=== PATIENT | female | born 1970 | race Caucasian/White ===

== ENCOUNTER → 2018-01-12 13:08 | Outpatient (CLI) | payer BC, SELFPAY ==
--- NOTE | 2018-01-12 13:10 | US_ITS ---
US transvaginal HISTORY: ITS.REASON: T/V US- Heavy Bleeding ORDERING PHYSICIAN: Berenice Fagan MD PATIENT AGE: 47 years Comparison: None FINDINGS: The uterus measures 8.7 x 5.4 x 5.8 cm with a combined endometrial thickness of 6 mm. There is a small amount of fluid within the superior aspect of the endometrial canal. Nabothian cysts are also noted. Left ovary is 2.5 x 1.4 cm. The right ovary is 3 x 2 cm. No adnexal mass or cul-de-sac fluid evident. IMPRESSION: Small amount of fluid in the endometrium otherwise negative pelvic ultrasound
== END ==
PROVIDERS: Family Provider Internal Medicine; PCP Internal Medicine; Visit Provider Obstetrics & Gynecology
DX: N92.0 Excessive and frequent menstruation with regular cycle (principal)
CPT/HCPCS: 76830

== ENCOUNTER → 2018-03-15 08:15 | Outpatient (CLI) | payer BC, SELFPAY ==
[2018-03-15 08:25] LABS: Hemoglobin 12.7 g/dL (12.2-16.2)
[2018-03-15 09:03] LABS: HCG Qualitative, Serum Negative (Negative)
== END ==
PROVIDERS: Visit Provider Obstetrics & Gynecology
DX: Z01.818 Encounter for other preprocedural examination (principal); N92.0 Excessive and frequent menstruation with regular cycle
CPT/HCPCS: 36415; 84703; 85014; 85018

== ENCOUNTER → 2018-05-23 16:24 | Outpatient (CLI) | payer BC, SELFPAY ==
--- NOTE | 2018-05-23 16:31 | MM_ITS ---
MM Dig screening mamm BI w/CAD ORDERING PHYSICIAN : Zac Sewell MD PATIENT AGE: 48 years GENDER: Female COMPARISON: Previous baseline October 2010 is the only available previous mammogram. INDICATION: ITS.REASON: Routine Screening MammogramNo hormones no new complaints.. Family history. Maternal great aunt and paternal great aunt with breast cancer TECHNIQUE: Standard CC and MLO images were obtained. R2 CAD reviewed. FINDINGS: Difficult breasts to evaluate due to the prominent asymmetric, pattern with heterogeneous areas of increased density bilaterally. Prominent asymmetry of the breast most evident towards left breast . Warrants additional spot views of the left breast RIGHT BREAST:. The density at the posterior margin of the medial right breast is most likely stable but is noted. Labeled A. I would recommend attempting a spot view it is very deep portion of the breast both in the CC and MLO projection.. A full 90 degree view of the right breast also may be of benefit. Ultrasound thereafter recommended. The above is likely likely stable feature but is but spot views will help to better visualizes region to confirm stability. Ultrasound survey this and other areas LEFT BREAST: Area X: More pronounced asymmetric region density throughout breast tissue is at inferior left breast vs previous available studies. This could merely be related to dense breast tissue and overlapping appearance but it is notably more pronounced and warrants further evaluation. Warrants additional views & ultrasound to further evaluate this area. Recommend MLOdegrees spot views area X and Y; along with cc spot views at both view both area X medial breast and area Y, along with the full breast 90 degree lateral view left breast.. Thereafter recommended Ultrasound left breast... Area labeled Y towards upper-outer quadrant was partially imaged last year but is seen to better advantage on today's axillary cc view and more optimal position MLO view today. IMPRESSION: ...... Left breast Additional spot views left breast along with left breast ultrasound Markedly asymmetric areas of breast tissue inferior breast labeled X as well as area at the upper outer quadrant left breast labeled Y. These may merely reflect areas of dense glandular tissue but are significantly more pronounced than on previous studies-but this in part due to difference in position and technique. Right breast. Spot views in the medial right breast area labeled A..... Subsequent ultrasound survey right breast also suggested thereafter BI-RADS Category: 0 Need Additional Imaging Evaluation RECOMMENDED FOLLOW-UP: IMM - IMMEDIATE FOLLOW-UP RECOMMENDED Spot views left breast of area X and Y, ,; followed by left breast ultrasound [Spot views deep right breast.. Subsequent ultrasound right breast is well (A letter has been sent to the patient regarding results of the study.) .
--- NOTE | 2018-05-23 16:32 | XR_ITS ---
XR foot wt bearing RT 3V HISTORY: ITS.REASON: Toe Pain ORDERING PHYSICIAN: Zac Sewell MD PATIENT AGE: 48 years COMPARISON: None FINDINGS: There is mild osteoarthritis of the first metatarsophalangeal joint with mild bony hypertrophy. A small calcification is present along the lateral aspect of the MTP joint nonspecific. No fracture or dislocation. No lytic or blastic change. IMPRESSION: Mild osteoarthritis of the first metatarsophalangeal joint
--- NOTE | 2018-05-23 16:32 | XR_ITS ---
XR foot wt bearing LT 3V HISTORY: ITS.REASON: Toe Pain ORDERING PHYSICIAN: Zac Sewell MD PATIENT AGE: 48 years COMPARISON: 01/29/2014 FINDINGS: There is moderate osteoarthritic change of the first metatarsophalangeal joint with bony hypertrophic change. No fracture or dislocation. No lytic or blastic change and no significant change from 01/29/2014. IMPRESSION: Osteoarthritis of the first metatarsophalangeal joint
== END ==
PROVIDERS: PCP Internal Medicine; Visit Provider Nurse Practitioner Obstetrics & Gynecology
DX: Z12.31 Encounter for screening mammogram for malignant neoplasm of breast (principal); M79.671 Pain in right foot; M79.672 Pain in left foot
CPT/HCPCS: 73630; 77067

== ENCOUNTER → 2018-06-20 14:27 | Outpatient (CLI) | payer BC, SELFPAY ==
--- NOTE | 2018-06-20 14:29 | MM_ITS ---
BILATERAL DIAGNOSTIC MAMMOGRAM: With bilateral spot views. CAD MAMMOGRAPHY. History: Today's studies are compared to May 23, 2018 and November 19, 2010. TECHNIQUE. CC and MLO spot views of both right and left breast but for 90 degrees view left breast. FINDINGS Breasts demonstrate prominent asymmetry with asymmetric Areas described on recent May 14, 2019 mammogram now further evaluated. RIGHT BREAST.. These asymmetric areas of fibroglandular tissue appear stable since 2010 at specifically noting similar area of density at the deep axillary right breast. No unique or discrete findings, of significant concern. . 2 very tiny benign calcifications deep medial right breast as well as deep superior breast are noted-not of concern LEFT BREAST Again asymmetric areas breast tissue are observed deep axillary left breast along the inferior left breast.. Most likely these features are stable since 2010. The region is slightly denser on today's MLO and 90 degrees views on these projections,, as appears the density fibroglandular tissue seems to dissipate on the cc views... Follow-up left mammogram in 6 months recommended. Self breast examination recommended at the inferior left breast. There is progressive findings here clinically then interval ultrasound may be warranted. Also the asymmetric island glandular tissue upper-outer quadrant left breast appears reasonably stable since 2010 with no suspicious no focal lesion here. . There are 3 small fairly dense most likely benign-appearing calcifications are noted at the superior left breast which would also benefit from 6 month follow-up IMPRESSION... Marked asymmetric, areas of moderately dense breast tissue at again observed. Most likely baseline for this patient and seem to dissipate from one view to another LEFT BREAST. Recommend 6 month follow-up to confirm stable baseline character of these asymmetric fibroglandular densities, as well as 3 small benign-appearing calcifications here at upper-outer quadrant RIGHT BREAST no significant change. Follow-up in one year adequate on right BI-RADS Category: 3 Probably Benign Finding Short Term Follow-up RECOMMENDED FOLLOW-UP: 6M - 6 MONTH FOLLOW-UP Left breast follow-up 6 months (A letter has been sent to the patient regarding the results of the study.)
== END ==
PROVIDERS: PCP Internal Medicine; Visit Provider Nurse Practitioner Obstetrics & Gynecology
DX: R92.8 Other abnormal and inconclusive findings on diagnostic imaging of breast (principal)
CPT/HCPCS: 77066

== ENCOUNTER → 2018-07-12 09:22 | Outpatient (CLI) | payer BC, SELFPAY ==
[2018-07-12 09:52] LABS: Basophils % 0.5 % (0.1-2.0); Eosinophils # 0.2 K/mm3 (0.0-0.4); Eosinophils % 3.6 % (0.1-12.0); Hematocrit 42.2 % (37.0-47.0); Hemoglobin 13.5 g/dL (12.2-16.2); Lymphocytes # 2.1 K/mm3 (0.7-4.5); Mean Corpuscular HGB Conc 32.1 g/dL (31.8-35.4); Mean Corpuscular Hemoglobin 29.5 pg (27.0-31.2); Mean Corpuscular Volume 91.9 fl (81-99); Mean Platelet Volume 6.9 fl (7.4-10.4); Monocytes # 0.2 K/mm3 (0.1-1.0); Monocytes % 3.4 % (1.7-9.3); Neutrophils # 4.1 K/mm3 (1.8-7.8); Neutrophils % 61.5 % (37.0-80.0); Platelet Count 263 K/mm3 (142-424); Red Blood Count 4.59 M/mm3 (4.20-5.40); Red Cell Distribution Width 13.7 % (11.5-17.5); White Blood Count 6.7 K/mm3 (4.8-10.8)
[2018-07-12 09:54] LABS: Urine Pregnancy, HCG Qual. Negative (Negative)
[2018-07-12 10:17] LABS: Blood Urea Nitrogen 20 mg/dL (7-18); Chloride 104 mmol/L (98-107); Glucose 99 mg/dL (74-106); Potassium 4.4 mmoL/L (3.5-5.1); Sodium 142 mmol/L (136-145)
[2018-07-12 10:31] LABS: Anion Gap 15.4 mEq/L (5-15); Carbon Dioxide 27 mmol/L (21.0-32.0); Creatinine,Serum 0.88 mg/dL (0.55-1.02); Estimated Glomerular Filt Rate 68 ml/min (>60); GFR (African American) 83 ML/MIN (>60)
[2018-07-13 14:18] LABS: Vitamin D 25 Hydroxy 29.8 ng/mL (30.0-100.0)
== END ==
PROVIDERS: PCP Internal Medicine; Visit Provider Podiatrist
DX: Z01.818 Encounter for other preprocedural examination (principal); M20.5X2 Other deformities of toe(s) (acquired), left foot; M79.675 Pain in left toe(s)
CPT/HCPCS: 36415; 80048; 81025; 82652; 85025; 93005

== ENCOUNTER → 2018-08-24 10:35 | Outpatient (CLI) | payer BC, SELFPAY ==
--- NOTE | 2018-08-24 10:38 | XR_ITS ---
XR foot wt bearing LT 3V HISTORY: ITS.REASON: post-op ORDERING PHYSICIAN: Kimberly Higgins DPM PATIENT AGE: 48 years COMPARISON: 08/10/2018 FINDINGS: Posterior splint remains in place. There is good alignment. Faint lucency once again noted at the head of the first metatarsal with mild osteoarthritic changes of the first MTP joint. IMPRESSION: No change in the posterior splint and faint lucency at the head of the first metatarsal
== END ==
PROVIDERS: PCP Internal Medicine; Visit Provider Podiatrist
DX: Z98.890 Other specified postprocedural states (principal)
CPT/HCPCS: 73630

== ENCOUNTER → 2018-09-06 13:21 | Outpatient (CLI) | payer BC, SELFPAY | PROVIDERS: Visit Provider Podiatrist | DX: Z98.890 Other specified postprocedural states (principal) | CPT/HCPCS: 87070; 87077; 87186; 87205 ==

== ENCOUNTER → 2018-09-13 14:53 | Outpatient (CLI) | payer BC, SELFPAY ==
--- NOTE | 2018-09-13 14:55 | NVE_ITS ---
Venous Exam Indications: 729.5 Pain in limb. Recent tendon surgery left lower extremity 4 weeks post op IMPRESSIONS No evidence of deep or superficial vein thrombosis involving the left lower extremity Left lower extremity venous duplex evaluation. Doppler flow study including spectral analysis, color and chang scale imaging. Location: Vascular laboratory. Patient status: Outpatient. CRITICAL FINDINGS - Reported to: Gisela - Read back and verified. - 09/13/18 - 1515 - None Tables: Venous flow and imaging: + +-------+ + Location Overall Flow properties + +-------+ + Left common femoral Patent Normal phasicity; spontaneous; normal augmentation; compressible + +-------+ + Left saphenofemoral junction Patent Compressible + +-------+ + Left profunda femoral Patent Compressible + +-------+ + Left femoral Patent Normal phasicity; spontaneous; normal augmentation; compressible + +-------+ + Left greater saphenous Patent Normal phasicity; spontaneous; normal augmentation; compressible + +-------+ + Left popliteal Patent Normal phasicity; spontaneous; normal augmentation; compressible + +-------+ + Left posterior tibial Patent Compressible + +-------+ + Left peroneal Patent Compressible + +-------+ + Left gastrocnemius Patent Compressible + +-------+ + Left soleal Patent Compressible + +-------+ + (Report amended ) Electronically signed by: Matthew Moeller [id number]
== END ==
PROVIDERS: PCP Internal Medicine; Visit Provider Podiatrist
DX: M79.669 Pain in unspecified lower leg (principal); M79.89 Other specified soft tissue disorders
CPT/HCPCS: 93971

== ENCOUNTER → 2018-09-23 08:05 | Outpatient (CLI) | payer BC, SELFPAY ==
--- NOTE | 2018-09-23 08:08 | XR_ITS ---
XR foot wt bearing LT 3V HISTORY: Follow-up surgery ITS.REASON: post-op ORDERING PHYSICIAN: Kimberly Higgins DPM PATIENT AGE: 48 years COMPARISON: 08/24/2018 FINDINGS: The posterior splint has been removed. There is good alignment. Osteoarthritic changes are present at the first metatarsophalangeal joint. No bony erosive process is evident. Faint lucency once again noted at the head of the first metatarsal. IMPRESSION: Interval splint removal otherwise no change.
== END ==
PROVIDERS: PCP Internal Medicine; Visit Provider Podiatrist
DX: Z98.890 Other specified postprocedural states (principal)
CPT/HCPCS: 73630

== ENCOUNTER 2018-10-03 08:30 | Outpatient (RCR) | payer BC, SELFPAY ==
--- NOTE | 2018-09-13 14:35 | HMH.PTOPEV ---
PT Outpatient Evaluation Rehab PT Outpatient Evaluation Start: 09/13/18 14:04 Freq: Status: Active Protocol: Document 09/13/18 14:04 SHERITA (Rec: 09/13/18 14:34 SHERITA [id number]) Electronically Signed By Pranav Donnelly, PT 09/13/18 14:04 Outpatient Therapy Subjective History Subjective History Pt presents s/p L ankle/foot sx. (1st MTP cartialge replacement, 1st MTP bone spur excision, post. tib. tendon lengthening) on 08/10/18. Pt reports improved foot and ankle function and pain overall compared to previous 3 -4 yrs. Pt reports however, constant achilles/soleus area pain, 'it feels like there's a knot in there', which limits gait d/t pain (same area as abscessed suture). Pt also reports some mild hypersensitivity on top of L foot since sx. Chief Complaint Pain Stiff Paresthesia Weakness Symptom Type Ache Throb Sharp Dull Burning Numbness Tingling Symptoms Relieved By Rest/Positioning Symptoms Aggravated By Standing Physical Activity Walking Prior Functional Limitations Housework Standing Walking Stairs Current Functional Limitations Housework Standing Walking Stairs Symptom Description Constant but Variable Level of pain today (0-10) 5 Pain scale - at its best (0-10) 1 Pain scale - at its worst (0-10) 7 Ankle/Foot Eval Gait Observation General Gait Pattern Observation Antalgic Gait Assistive Device Ambulation Assistive Device None Palpation Tenderness left Ankle/Foot Palpation Findings Tenderness Trigger Point Ankle/Foot Palpation Overall Comment achilles MT junction and medial gastroc 3/4, 1st MTP 2/ 4 ROM Ankle/Foot Dorsiflexion w/Knee Extended 0-10
== END 2018-10-03 08:35 | disposition home or self-care (01) ==
LOC: PT 08:30
PROVIDERS: Visit Provider Podiatrist
DX: Z98.890 Other specified postprocedural states (principal)
CPT/HCPCS: 97010; 97014; 97035; 97110; 97140; 97163; G0283

== ENCOUNTER → 2018-11-03 15:17 | Outpatient (CLI) | payer BC, SELFPAY ==
--- NOTE | 2018-11-03 15:18 | MM_ITS ---
MM Dig mamm BI DX w/CAD, US breast RT complete, US breast LT complete INDICATION: Palpable right breast nodule, six-month follow-up left breast ORDERING PHYSICIAN: Zac Sewell MD PATIENT AGE: 48 years COMPARISON: 06/20/2018, 05/23/2018 TECHNIQUE: Bilateral mammogram performed with bilateral spot compression views and bilateral breast ultrasound FINDINGS: Right breast: Palpable abnormality is reported at 6:00. There is average fibroglandular tissue. Benign-appearing nodular opacities present in the outer aspect of the right breast not significant change. There is some asymmetric fibroglandular tissue in the superior aspect of the right breast and in the inferior aspect of the right breast. These areas have her do appear to compress out as fibroglandular tissue. There is a benign-appearing nodular density in the medial aspect of the right breast 4 mm. No malignant appearing mass or malignant appearing microcalcification is evident. Asymmetric density once again noted involving the upper inner deep aspect of the right breast not significant change. This was present on 11/19/2010 as well and unchanged. Right breast ultrasound: There is a 5 x 4 mm cyst at 7:00. No other abnormalities are apparent. No malignant appearing mass or malignant appearing microcalcification Left breast: Asymmetric tissue once again noted in the axillary region on the left. No malignant appearing mass or malignant appearing microcalcification is evident. Is asymmetric density was present dating back to 11/19/2010 and is felt to be related to fibroglandular tissue. Benign-appearing calcifications are present in the upper outer left breast. Benign-appearing nodules are noted on the left as well with asymmetric density in the inferolateral aspect of left breast also similar to previous exams. Left breast ultrasound: No sonographic abnormality. Small nodes are present in the axilla. IMPRESSION: No convincing evidence of malignancy. Scattered areas of asymmetry as previously described not significantly changed. Small cyst is present in the 7:00 region of the right breast at 5 x 4 mm. A negative mammogram and negative ultrasound does not exclude the possibility of malignancy. No anomalies are evident in the area of palpable concern. If there is indeed a palpable nodules in addition be managed on a clinical basis. Recommend screening mammogram in 6 months BI-RADS Category: 2 Benign Finding(s) RECOMMENDED FOLLOW-UP: 6M - 6 MONTH FOLLOW-UP Any palpable nodule should be managed on clinical basis despite negative mammogram and negative ultrasound. (A letter has been sent to the patient regarding results of the study.)
== END ==
PROVIDERS: PCP Internal Medicine; Visit Provider Nurse Practitioner Obstetrics & Gynecology
DX: R92.8 Other abnormal and inconclusive findings on diagnostic imaging of breast (principal)
CPT/HCPCS: 76641; 77066

== ENCOUNTER → 2018-11-24 08:41 | Outpatient (CLI) | payer BC, SELFPAY ==
--- NOTE | 2018-11-24 08:44 | XR_ITS ---
XR foot wt bearing LT 3V HISTORY: Pain redness and swelling ITS.REASON: postop views ORDERING PHYSICIAN: Kimberly Higgins DPM PATIENT AGE: 48 years COMPARISON: 09/23/2018 FINDINGS: No fracture or dislocation. Osteoarthritic change once again noted at the first metatarsophalangeal joint with a subcortical lucency involving the central distal aspect of the first metatarsal. Mild soft tissue swelling medially at the first MTP joint. Otherwise negative. IMPRESSION: Overall no change in the osteoarthritis of the first MTP with a subcortical lucency at the distal aspect of the first metatarsal now with some soft tissue swelling at this area
== END ==
PROVIDERS: PCP Internal Medicine; Visit Provider Podiatrist
DX: Z98.890 Other specified postprocedural states (principal)
CPT/HCPCS: 73630

== ENCOUNTER → 2019-02-01 13:59 | Outpatient (CLI) | payer BC, SELFPAY ==
--- NOTE | 2019-02-01 14:04 | XR_ITS ---
XR foot wt bearing LT 3V HISTORY: ITS.REASON: post op pain ORDERING PHYSICIAN: Kimberly Higgins DPM PATIENT AGE: 48 years COMPARISON: 11/24/2018 FINDINGS: Postsurgical defect noted at the distal aspect of the first metatarsal with osteoarthritic change of the first MTP joint overall not significantly changed. Mild soft tissue swelling is present at the MTP joint posteriorly. Minimal fragmentation noted along the dorsal distal aspect of the first metatarsal. IMPRESSION: Osteoarthritis with postsurgical change at the first MTP joint. There is some minimal dorsal fragmentation at the distal aspect of the first metatarsal which is of questionable clinical significance. Continued follow-up suggested
== END ==
PROVIDERS: PCP Internal Medicine; Visit Provider Podiatrist
DX: Z98.890 Other specified postprocedural states (principal); M79.672 Pain in left foot
CPT/HCPCS: 73630

== ENCOUNTER → 2019-06-05 10:47 | Outpatient (CLI) | payer BC, SELFPAY ==
[2019-06-05 11:06] LABS: Basophils % 0.5 % (0.1-2.0); Eosinophils # 0.2 K/mm3 (0.0-0.4); Hematocrit 39.9 % (37.0-47.0); Hemoglobin 12.4 g/dL (12.2-16.2); Lymphocytes # 1.7 K/mm3 (0.7-4.5); Lymphocytes % 31.6 % (10-50); Mean Corpuscular HGB Conc 31.2 g/dL (31.8-35.4); Mean Corpuscular Hemoglobin 30.6 pg (27.0-31.2); Mean Platelet Volume 8.1 fl (7.4-10.4); Monocytes # 0.2 K/mm3 (0.1-1.0); Monocytes % 3.3 % (1.7-9.3); Neutrophils # 3.4 K/mm3 (1.8-7.8); Neutrophils % 61.5 % (37.0-80.0); Platelet Count 254 K/mm3 (142-424); Red Blood Count 4.07 M/mm3 (4.20-5.40); White Blood Count 5.5 K/mm3 (4.8-10.8)
[2019-06-05 12:53] LABS: Alanine Aminotransferase 36 U/L (12-78); Albumin Level 3.5 gm/dL (3.4-5.0); Albumin/Globulin Ratio 1.1 (1.1-1.8); Alkaline Phosphatase 76 U/L (46-116); Aspartate Amino Transferase 23 U/L (15-37); Bilirubin,Total 0.3 mg/dL (0.2-1.0); Blood Urea Nitrogen 16 mg/dL (7-18); Calcium 8.3 mg/dL (8.5-10.1); Carbon Dioxide 28 mmol/L (21.0-32.0); Chloride 100 mmol/L (98-107); Chol/HDL Ratio 3.9 (1-3.5); Cholesterol 195 mg/dL (140-200); Creatinine,Serum 0.69 mg/dL (0.55-1.02); Estimated Glomerular Filt Rate 90 ml/min (>60); Free Thyroxine Index 2.4 ug/dL (5.93-13.13); GFR (African American) 109 ML/MIN (>60); Globulin 3.3 gm/dl (1.3-3.2); Glucose 91 mg/dL (74-106); HDL Cholesterol 50 mg/dL (29-89); LDL Cholesterol 121 mg/dL (0-130); Sodium 128 mmol/L (136-145); T4 (Thyroxine) 7.4 ug/dl (4.7-13.3); Thyroid Stimulating Hormone 2.11 uIU/ml (0.358-3.740); Total Protein,Serum 6.8 gm/dL (6.4-8.2); Triglycerides 120 mg/dL (30-200); Triiodothryronine (T3) Uptake 33 % (31-39); VLDL Cholesterol 24 mg/dL (0-40)
[2019-06-06 13:17] LABS: Estradiol 158.8 pg/mL (.); FSH 3.9 mIU/mL (.); LH 5.6 mIU/mL (.)
== END ==
PROVIDERS: Visit Provider Nurse Practitioner Obstetrics & Gynecology
DX: Z00.00 Encounter for general adult medical examination without abnormal findings (principal)
CPT/HCPCS: 36415; 80053; 80061; 82670; 83001; 83002; 84436; 84443; 84479; 85025

== ENCOUNTER → 2021-03-10 10:05 | Outpatient (CLI) | payer BC, SELFPAY ==
--- NOTE | 2021-03-10 10:13 | XR_ITS ---
PROCEDURE: XR ELBOW LT MIN 3V CLINICAL INDICATION: LT ELBOW PAIN COMPARISON: No exams were available for comparison FINDINGS: No fracture or dislocation. No lytic or blastic change. There is normal mineralization. There is mild spurring involving the medial aspect the coracoid process. No displaced fat pad. IMPRESSION: Mild osteoarthritic change. Dictated by: Nikko Marie MD 03/10/2021 10:27 Nikko Marie MD in [place] 03/10/2021 10:27
== END ==
PROVIDERS: PCP Internal Medicine; Visit Provider Internal Medicine
DX: M25.522 Pain in left elbow (principal)
CPT/HCPCS: 73080

== ENCOUNTER → 2021-05-19 08:04 | Outpatient (CLI) | payer BC, SELFPAY | PROVIDERS: PCP Internal Medicine; Visit Provider Nurse Practitioner | DX: Z20.822 Contact with and (suspected) exposure to COVID-19 (principal) | CPT/HCPCS: C9803; U0003; U0005 ==

== ENCOUNTER → 2021-07-14 10:11 | Outpatient (CLI) | payer BC, SELFPAY | PROVIDERS: PCP Internal Medicine; Visit Provider Nurse Practitioner | DX: Z20.822 Contact with and (suspected) exposure to COVID-19 (principal) | CPT/HCPCS: C9803; U0003; U0005 ==

== ENCOUNTER → 2021-07-23 13:01 | Outpatient (CLI) | payer BC, SELFPAY | PROVIDERS: Visit Provider Nurse Practitioner | DX: U07.1 COVID-19 (principal) | CPT/HCPCS: C9803; U0003; U0005 ==

== ENCOUNTER 2021-07-24 12:12 | Emergency (ER) | payer BC, SELFPAY ==
[2021-07-24 12:27] VITALS: BP 0/0; PULSE 0; RESP 0; TEMP -17.7; TEMP 0
== END 2021-07-24 12:28 | disposition left against medical advice (07) ==
PROVIDERS: Emergency Provider Nurse Practitioner; PCP Internal Medicine
DX: Z53.21 Procedure and treatment not carried out due to patient leaving prior to being seen by health care provider (principal)

== ENCOUNTER 2021-07-26 13:10 | Emergency (ER) | payer BC, SELFPAY ==
[2021-07-26 13:11] VITALS: BP 139/93; PULSE 86; RESP 16; TEMP 37.1; O2SAT 99; BMI 25.9
--- NOTE | 2021-07-26 14:17 | XR_ITS ---
PROCEDURE INFORMATION: Exam: XR Chest Exam date and time: 07/26/2021 2:17 PM Age: 51 years old Clinical indication: Condition or disease; Other: Covid; Cough; Additional info: Cough, covid TECHNIQUE: Imaging protocol: XR of the chest. Views: 1 view. COMPARISON: No relevant prior studies available. FINDINGS: Lungs: Hyperinflation and interstitial prominence, without acute infiltrate. Pleural spaces: No pleural effusion. Heart/Mediastinum: No cardiomegaly. Bones/joints: Degenerative change. IMPRESSION: Hyperinflation and interstitial prominence, without acute infiltrate.
--- NOTE | 2021-07-26 14:26 | HMH.EDGENADL ---
ED Disposition Clinical Impression: COVID-19 virus infection Disposition: Home, Self-Care Condition on Discharge: Fair Instructions: DI for COVID-19 (Suspected or Confirmed ), DI for Nausea -- Adult Additional Instructions: You have been evaluated for nausea and vomiting. Likely due to COVID-19 infection. Please continue to monitor your symptoms at home. Tylenol for 6 hours. Ibuprofen for breakthrough fever. Phenergan for nausea. Follow-up with your primary care doctor. Return to the emergency department for any new or worsening symptoms, difficulty breathing or other concerns. Prescriptions: Promethazine HCl [Phenergan 12.5mg tablet] 12.5 mg PO Q6H PRN #6 tab PRN Reason: Nausea Transmission Status: Pending to [id number] Referrals: Ramiro Calix [Primary Care Provider] - Time of Disposition: 16:08 - Critical Care Critical Care Time: No Attestation: On 07/26/21, the high probability of a clinically significant, sudden or life threatening deterioration of the following system(s) required my full and direct attention, intervention and personal management. The time I documented below is in addition to time spent performing reported procedures but includes the following listed in this critical care notation. Medical Decision Making - Medical Records Medical records reviewed: Yes: I reviewed the patient's medical records. - [place] Inquiry Pt receiving controlled substance: No Vital Signs: 07/26/21 13:11 07/26/21 16:04 07/26/21 16:06 Temperature 98.7 F 98.4 F Temperature Source Oral Oral Pulse Rate 70 87 Pulse Rate [Right] 86 Respiratory Rate 16 16 Blood Pressure 136/73 136/73 Blood Pressure [Right Arm] 139/93 H Blood Pressure Mean [Right Arm] 108 Blood Pressure Source Automatic Cuff Blood Pressure Source [Right Arm] Automatic Cuff Blood Pressure Position Sitting Blood Pressure Position [Right Arm] Sitting 02 Sat by Pulse Oximetry 99 99 99 Oxygen Delivery Method Room Air Room Air Room Air - Lab Data Lab Results 07/26/21 14:28: WBC 4.9, RBC 4.77, Hgb 14.9, Hct 45.5, MCV 95.3, MCH 31.2, MCHC 32.7, RDW 13.1, Plt Count 217, MPV 8.0, Neut % (Auto) 64.5, Lymph % (Auto) 29.3, [place] % (Auto) 4.5, Eos % (Auto) 0.2, Baso % (Auto) 1.5, Neut # (Auto) 3.1, Lymph # (Auto) 1.4, [place] # (Auto) 0.2, Eos # (Auto) 0.0, Baso # (Auto) 0.1 07/26/21 14:28: Sodium 137, Potassium 3.5, Chloride 102, Carbon Dioxide 25, Anion Gap 13.5, BUN 18 H, Creatinine 0.90, Estimated Creat Clear 90, Estimated GFR 66, Est GFR ( Amer) 80, Glucose 102 H, Calcium 9.4, Total Bilirubin 0.6, AST 38 H, ALT 29, Alkaline Phosphatase 58, Total Protein 7.9, Albumin 4.5, Globulin 3.4 H, Albumin/Globulin Ratio 1.3 Result diagrams: 07/26/21 14:28 07/26/21 14:28 Orders (Tests/Meds): ED MEDICATIONS Discontinued Medications Generic Name Dose Route Start Last Admin Trade Name Medardoq PRN Reason Stop Dose Admin Promethazine HCl 12.5 mg 07/26/21 14:18 07/26/21 14:31 Promethazine Hcl 25mg/Ml 1ml Vial IV 07/26/21 14:19 12.5 mg ONCE ONE Administration Sodium Chloride 500 ml 07/26/21 14:18 07/26/21 14:31 Sodium Chloride 0.9% 500ml Bag IV 07/26/21 14:19 500 ml ONCE ONE Administration Sodium Chloride 25 ml 07/26/21 14:18 Sodium Chloride 0.9% 25ml Bag IV 07/26/21 14:19 ONCE ONE ORDERS Category Date Time Status Urinalysis and Microscopic Stat Lab 07/26/21 16:01 Ordered - Radiology Data #1 Image(s): Chest Image Reviewed: Yes I reviewed the patient's radiology results, Yes I have reviewed radiologist's interpretation Preliminary Findings: Normal/NAD IMPRESSION: Hyperinflation and interstitial prominence, without acute infiltrate. Medical Decision Narrative: In summary this is a 51-year-old female on day 10 of Covid virus presenting to the emergency department with nausea, vomiting, body aches and chills. Patient clinically stable on arrival. Vital signs withi
[2021-07-26 14:53] LABS: Basophils # 0.1 K/mm3 (0-0.2); Basophils % 1.5 % (0.1-2.0); Eosinophils % 0.2 % (0.1-12.0); Hematocrit 45.5 % (37.0-47.0); Hemoglobin 14.9 g/dL (12.2-16.2); Lymphocytes # 1.4 K/mm3 (0.7-4.5); Lymphocytes % 29.3 % (10-50); Mean Corpuscular HGB Conc 32.7 g/dL (31.8-35.4); Mean Corpuscular Hemoglobin 31.2 pg (27.0-31.2); Mean Corpuscular Volume 95.3 fl (81-99); Monocytes # 0.2 K/mm3 (0.1-1.0); Monocytes % 4.5 % (1.7-9.3); Neutrophils # 3.1 K/mm3 (1.8-7.8); Neutrophils % 64.5 % (37.0-80.0); Platelet Count 217 K/mm3 (142-424); Red Blood Count 4.77 M/mm3 (4.20-5.40); Red Cell Distribution Width 13.1 % (11.5-17.5); White Blood Count 4.9 K/mm3 (4.8-10.8)
[2021-07-26 14:56] LABS: Alanine Aminotransferase 29 U/L (12-78); Albumin Level 4.5 g/dl (3.5-5.0); Albumin/Globulin Ratio 1.3 (1.1-1.8); Alkaline Phosphatase 58 U/L (38-126); Anion Gap 13.5 mEq/L (5-15); Aspartate Amino Transferase 38 U/L (14-36); Bilirubin,Total 0.6 mg/dl (0.2-1.3); Blood Urea Nitrogen 18 mg/dl (7-17); Calcium 9.4 mg/dl (8.4-10.2); Carbon Dioxide 25 mmol/L (22.0-30.0); Chloride 102 mmol/L (98-107); Creatinine Clearance Estimated 90 mL/min (50-200); Estimated Glomerular Filt Rate 66 ml/min (>60); GFR (African American) 80 ML/MIN (>60); Globulin 3.4 g/dL (1.3-3.2); Glucose 102 mg/dl (74-100); Potassium 3.5 mmoL/L (3.5-5.1); Sodium 137 mmol/L (136-145); Total Protein,Serum 7.9 g/dl (6.3-8.2)
--- NOTE | 2021-07-26 16:00 | PC.NURSE ---
pt up to restroom
[2021-07-26 16:04] VITALS: BP 136/73; PULSE 70; RESP 16; TEMP 36.9; O2SAT 99
[2021-07-26 16:06] VITALS: BP 136/73; PULSE 87; O2SAT 99
[2021-07-26 16:09] LABS: Microscopic, Urine URINE MICROSCOPIC (MICROSCOPIC)
[2021-07-26 16:14] LABS: Appearance,Urine SL CLOUDY (Clear); Bilirubin,Urine Negative (Negative); Blood, Urine Negative (Negative); Color,Urine YELLOW (Yellow); Glucose,Urine (UA) Negative (Negative); Ketones,Urine Negative (Negative); Leukocyte Esterase,Urine TRACE (Negative); Nitrate,Urine POSITIVE (Negative); PH,Urine 5.5 (5.0-8.5); Protein,Urine Negative (Negative); Specific Gravity, Urine 1.015 (1.005-1.030); Urobilinogen,Urine 0.2 EU/dl (0.2)
[2021-07-26 16:17] VITALS: BP 130/70; PULSE 70; RESP 16; TEMP 36.9; O2SAT 99
[2021-07-26 16:42] LABS: Bacteria,Urine 4+ /lpf; RBC,Urine Occasional #/hpf (0-3)
== END 2021-07-26 16:18 | disposition home or self-care (01) ==
PROVIDERS: Emergency Provider Emergency Medicine; PCP Internal Medicine
DX: U07.1 COVID-19 (principal); R10.13 Epigastric pain; E78.5 Hyperlipidemia, unspecified; F41.8 Other specified anxiety disorders
CPT/HCPCS: 71045; 80053; 81001; 85025; 87086; 87088; 87186; 96365; 96375; 99283

== ENCOUNTER 2021-07-28 20:17 | Emergency (ER) | payer BC, SELFPAY ==
[2021-07-28 20:18] VITALS: BP 122/97; PULSE 115; RESP 18; TEMP 37.2; O2SAT 96; BMI 25.9
[2021-07-28 20:29] VITALS: BP 126/74; PULSE 132; O2SAT 95
--- NOTE | 2021-07-28 20:36 | HMH.EDGENADL ---
ED Disposition Clinical Impression: COVID-19 virus infection, Opacities of both lungs present on chest x-ray, Nausea and vomiting, Diarrhea, Colitis Disposition: Home, Self-Care Condition on Discharge: Good Instructions: DI for Diarrhea and Traveler's Diarrhea -- Adult, DI for Diarrhea and Traveler's Diarrhea -- Child, DI for Nausea -- Adult, DI for Nausea -- Child Prescriptions: Metoclopramide HCl [Reglan 10mg Tab] 10 mg PO QID PRN #8 tab PRN Reason: Nausea And Vomiting Transmission Status: Pending to [id number] hydrOXYzine pamoate [Vistaril 25mg capsule] 25 mg PO Q8H PRN #9 cap PRN Reason: Anxiety Transmission Status: Pending to [id number] Referrals: Ramiro Calix [Primary Care Provider] - - Critical Care Critical Care Time: No Attestation: On 07/28/21, the high probability of a clinically significant, sudden or life threatening deterioration of the following system(s) required my full and direct attention, intervention and personal management. The time I documented below is in addition to time spent performing reported procedures but includes the following listed in this critical care notation. Medical Decision Making - [place] Inquiry Pt receiving controlled substance: Yes [place] was queried for this patient: No Risks and benefits of using a controlled substance: were not discussed with pt by me Vital Signs: 07/28/21 20:18 07/28/21 20:29 07/28/21 21:00 Temperature 98.9 F Temperature Source Oral Pulse Rate 132 H 96 H Pulse Rate [Right Radial] 115 H Respiratory Rate 18 Blood Pressure 126/74 132/79 Blood Pressure [Right Arm] 122/97 H Blood Pressure Mean [Right Arm] 105 Blood Pressure Source [Right Arm] Automatic Cuff Blood Pressure Position [Right Arm] Sitting 02 Sat by Pulse Oximetry 96 95 97 Oxygen Delivery Method Room Air Room Air Room Air 07/28/21 21:30 Temperature Temperature Source Pulse Rate 89 Pulse Rate [Right Radial] Respiratory Rate Blood Pressure 118/73 Blood Pressure [Right Arm] Blood Pressure Mean [Right Arm] Blood Pressure Source [Right Arm] Blood Pressure Position [Right Arm] 02 Sat by Pulse Oximetry 97 Oxygen Delivery Method Room Air - Lab Data Lab Results 07/28/21 20:50: Sodium 138, Potassium 3.4 L, Chloride 102, Carbon Dioxide 26, Anion Gap 13.4, BUN 18 H, Creatinine 0.80, Estimated Creat Clear 101, Estimated GFR 75, Est GFR ( Amer) 91, Glucose 133 H, Calcium 9.1, Total Bilirubin 0.7, AST 48 H D, ALT 33, Alkaline Phosphatase 61, Troponin I < 0.01, Total Protein 8.0, Albumin 4.5, Globulin 3.5 H, Albumin/Globulin Ratio 1.3 07/28/21 20:50: WBC 6.2 D, RBC 4.96, Hgb 15.5, Hct 46.5, MCV 93.7, MCH 31.2, MCHC 33.2, RDW 13.1, Plt Count 234, MPV 8.0, Neut % (Auto) 69.6, Lymph % (Auto) 24.7, [place] % (Auto) 3.3, Eos % (Auto) 0.2, Baso % (Auto) 2.3 H, Neut # (Auto) 4.3, Lymph # (Auto) 1.5, [place] # (Auto) 0.2, Eos # (Auto) 0.0, Baso # (Auto) 0.1 07/28/21 20:50: D-Dimer 0.62 H 07/28/21 20:50: Magnesium 1.7, Lipase 178 07/28/21 22:33: Lactate 1.0 07/28/21 22:36: Urine Color Yellow, Urine Appearance Clear, Urine pH 5.5, Ur Specific [place] <= 1.005, Urine Protein Negative, Urine Glucose (UA) Negative, Urine Ketones 1+, Urine Blood 2+, Urine Nitrate Negative, Urine Bilirubin Negative, Urine Urobilinogen 0.2, Ur Leukocyte Esterase Negative, Urine RBC 3-5, Urine WBC Occasional, Ur Squamous Epith Cells 3-5, Urine Bacteria None 07/28/21 22:36: Urine HCG, Qual Negative Result diagrams: 07/28/21 20:50 07/28/21 20:50 Orders (Tests/Meds): ED MEDICATIONS Generic Name Dose Route Start Last Admin Trade Name Freq PRN Reason Stop Dose Admin Lactated Ringer's 1,000 mls @ 999 mls/hr 07/28/21 20:45 07/28/21 21:10 Lactated Ringer's 1000 Ml Bag IV 07/28/21 21:45 999 mls/hr .Q1H1M LELIA Administration Sodium Chloride 10 ml 07/28/21 20:41 Sodium Chloride 0.9% 10ml Vial IV 08/27/21 20:40 NEEDED PRN to Dilute Lorazepam in
--- NOTE | 2021-07-28 20:41 | XR_ITS ---
PROCEDURE INFORMATION: Exam: XR Chest Exam date and time: 07/28/2021 8:41 PM Age: 51 years old Clinical indication: Dyspnea; Patient HX: Covid +; Additional info: Trouble breathing TECHNIQUE: Imaging protocol: XR of the chest. Views: 4 or more views. COMPARISON: CR XR CHEST PORTABLE 07/26/2021 2:32 PM FINDINGS: Lungs: Scattered nodular pulmonary opacities. No lobar consolidation. Pleural spaces: No pleural effusion. No pneumothorax. Heart/Mediastinum: No cardiomegaly. Bones/joints: Degenerative changes of the shoulders. Mild scoliosis. IMPRESSION: Scattered nodular pulmonary opacities which are nonspecific but would be compatible with the provided history of covid.
--- NOTE | 2021-07-28 20:41 | CT_ITS ---
PROCEDURE INFORMATION: Exam: CT Abdomen And Pelvis With Contrast Exam date and time: 07/28/2021 8:41 PM Age: 51 years old Clinical indication: Vomiting; Abdominal pain; Patient HX: Covid+; Additional info: Abd pain, intractable vomiting TECHNIQUE: Imaging protocol: Computed tomography of the abdomen and pelvis with contrast. Radiation optimization: All CT scans at this facility use at least one of these dose optimization techniques: automated exposure control; mA and/or kV adjustment per patient size (includes targeted exams where dose is matched to clinical indication); or iterative reconstruction. Contrast material: ISOVUE; Contrast volume: 75 ml; Contrast route: IV; COMPARISON: TRANVAG US transvaginal 01/12/2018 1:35 PM FINDINGS: Lungs: Multifocal bilateral ground-glass pulmonary opacities.. Liver: Normal. No mass. Gallbladder and bile ducts: No calcified stones. No ductal dilation. Pancreas: Normal enhancement. No ductal dilation. Spleen: No splenomegaly. Adrenal glands: No mass. Kidneys and ureters: Punctate nonobstructing renal calculi without hydronephrosis. Stomach and bowel: Long segment colonic wall thickening. Appendix: No evidence of appendicitis. Intraperitoneal space: No free air. No significant fluid collection. Vasculature: Calcified atherosclerosis. No aneurysm. Lymph nodes: No enlarged lymph nodes. Urinary bladder: No acute abnormality. Reproductive: No acute abnormality. Bones/joints: No acute fracture. Soft tissues: No soft tissue swelling. IMPRESSION: 1. Multifocal bilateral ground-glass pulmonary opacities which are nonspecific but likely infectious or inflammatory and would be compatible with the provided history of covid. 2. Long segment colonic wall thickening raising concern for colitis.
[2021-07-28 21:00] VITALS: BP 132/79; PULSE 96; O2SAT 97
[2021-07-28 21:01] LABS: Basophils # 0.1 K/mm3 (0-0.2); Basophils % 2.3 % (0.1-2.0); Eosinophils % 0.2 % (0.1-12.0); Hematocrit 46.5 % (37.0-47.0); Hemoglobin 15.5 g/dL (12.2-16.2); Lymphocytes # 1.5 K/mm3 (0.7-4.5); Lymphocytes % 24.7 % (10-50); Mean Corpuscular HGB Conc 33.2 g/dL (31.8-35.4); Mean Corpuscular Hemoglobin 31.2 pg (27.0-31.2); Mean Corpuscular Volume 93.7 fl (81-99); Monocytes # 0.2 K/mm3 (0.1-1.0); Monocytes % 3.3 % (1.7-9.3); Neutrophils # 4.3 K/mm3 (1.8-7.8); Neutrophils % 69.6 % (37.0-80.0); Platelet Count 234 K/mm3 (142-424); Red Blood Count 4.96 M/mm3 (4.20-5.40); Red Cell Distribution Width 13.1 % (11.5-17.5); White Blood Count 6.2 K/mm3 (4.8-10.8)
[2021-07-28 21:08] LABS: Alanine Aminotransferase 33 U/L (12-78); Albumin Level 4.5 g/dl (3.5-5.0); Albumin/Globulin Ratio 1.3 (1.1-1.8); Alkaline Phosphatase 61 U/L (38-126); Anion Gap 13.4 mEq/L (5-15); Aspartate Amino Transferase 48 U/L (14-36); Bilirubin,Total 0.7 mg/dl (0.2-1.3); Blood Urea Nitrogen 18 mg/dl (7-17); Calcium 9.1 mg/dl (8.4-10.2); Carbon Dioxide 26 mmol/L (22.0-30.0); Chloride 102 mmol/L (98-107); Creatinine Clearance Estimated 101 mL/min (50-200); Estimated Glomerular Filt Rate 75 ml/min (>60); GFR (African American) 91 ML/MIN (>60); Globulin 3.5 g/dL (1.3-3.2); Glucose 133 mg/dl (74-100); Lipase 178 U/L (23-300); Magnesium 1.7 mg/dl (1.6-2.3); Potassium 3.4 mmoL/L (3.5-5.1); Sodium 138 mmol/L (136-145)
[2021-07-28 21:12] LABS: D-Dimer 0.62 ug/mL (0.0-0.5)
--- NOTE | 2021-07-28 21:22 | ECG_ITS ---
APPROVED REPORT Exam: Resting ECG HR:98 bpm ECG Measurements Heart Rate 98 AXES WV 136 P 66 QRSd 78 QRS 78 QT 354 T 32 QTc 451 Conclusion Normal sinus rhythm ST abnormality, possible digitalis effect Abnormal ECG Electronically signed by : Elliot Roa MD 08/01/2021 14:37:43
[2021-07-28 21:23] LABS: Troponin I < 0.01 ng/ml (0.00-0.034)
[2021-07-28 21:30] VITALS: BP 118/73; PULSE 89; O2SAT 97
--- NOTE | 2021-07-28 22:04 | PC.NURSE ---
Updated sister over the phone on pt's condition with verbal consent from pt
[2021-07-28 22:40] LABS: Microscopic, Urine URINE MICROSCOPIC (MICROSCOPIC)
[2021-07-28 22:46] LABS: Appearance,Urine CLEAR (Clear); Bilirubin,Urine Negative (Negative); Blood, Urine 2+ (Negative); Color,Urine YELLOW (Yellow); Glucose,Urine (UA) Negative (Negative); Ketones,Urine 1+ (Negative); Leukocyte Esterase,Urine Negative (Negative); Nitrate,Urine Negative (Negative); PH,Urine 5.5 (5.0-8.5); Protein,Urine Negative (Negative); Specific Gravity, Urine <= 1.005 (1.005-1.030); Urobilinogen,Urine 0.2 EU/dl (0.2)
[2021-07-28 22:51] LABS: Urine Pregnancy, HCG Qual. Negative (Negative)
[2021-07-28 23:00] LABS: WBC,Urine Occasional #/hpf (0-3)
[2021-07-28 23:50] VITALS: BP 105/65; PULSE 78; RESP 12; TEMP 36.7; O2SAT 97
== END 2021-07-28 23:53 | disposition home or self-care (01) ==
PROVIDERS: Emergency Provider Student in an Organized Health Care Education/Training Program; PCP Internal Medicine
DX: U07.1 COVID-19 (principal); F41.8 Other specified anxiety disorders; R06.02 Shortness of breath
CPT/HCPCS: 71045; 74177; 80053; 81001; 81025; 83605; 83690; 83735; 84484; 85025; 85378; 93005; 96365; 96375; 99283; Q9967

== ENCOUNTER → 2022-06-08 15:35 | Outpatient (CLI) | payer BC, SELFPAY ==
--- NOTE | 2022-06-08 15:40 | XR_ITS ---
FINAL REPORT CLINICAL HISTORY: 2nd,3rd and 4th toe pain FINDINGS: RIGHT TOES 3 views of the right toes were obtained. There is a small, well corticated ossific density adjacent to the 3rd DIP joint measuring 1 mm, likely due to old trauma. There is no acute fracture or dislocation. Visualized joint spaces are normally aligned. Soft tissues are unremarkable. IMPRESSION: No acute bony abnormality. Reviewed, Interpreted and Dictated by Kenyon Grande MD Transcribed by Mary Donohue Authenticated and . [facility]
--- NOTE | 2022-06-08 15:40 | XR_ITS ---
FINAL REPORT CLINICAL HISTORY: PAIN ON BOTTOM OF FOOT, AND HEEL PAIN FINDINGS: RIGHT FOOT 3 views of the right foot were obtained. There is a small, well corticated ossific density adjacent to the 3rd DIP joint measuring 1 mm, likely due to old trauma. There is no acute fracture or dislocation. Visualized joint spaces are normally aligned. Soft tissues are unremarkable. IMPRESSION: No acute bony abnormality. Reviewed, Interpreted and Dictated by Kenyon Grande MD Transcribed by Mary Donohue Authenticated and [facility]
== END ==
LOC: RAD 15:37
PROVIDERS: PCP Internal Medicine; Visit Provider Nurse Practitioner Family
DX: M79.671 Pain in right foot (principal); M79.674 Pain in right toe(s)
CPT/HCPCS: 73630; 73660

== ENCOUNTER → 2022-10-28 08:19 | Outpatient (POV) | payer BC, SELFPAY | PROVIDERS: Visit Provider Specialist/Technologist | DX: Z00.00 Encounter for general adult medical examination without abnormal findings (principal) ==

== ENCOUNTER → 2022-11-25 15:06 | Outpatient (POV) | payer BC, SELFPAY | PROVIDERS: Visit Provider Specialist/Technologist | DX: Z00.00 Encounter for general adult medical examination without abnormal findings (principal) ==

== ENCOUNTER 2023-08-05 10:14 | Outpatient (CLI) | payer BC, SELFPAY ==
--- NOTE | 2023-08-05 10:17 | MM_ITS ---
PROCEDURE INFORMATION: Exam: MG Bilateral Screening 3D Mammography Exam date and time: 08/05/2023 10:07 AM Age: 53 years old Clinical indication: Screening mammogram TECHNIQUE: Imaging protocol: Bilateral Screening tomosynthesis and 2D mammography including computer-aided detection (CAD) when performed. COMPARISON: 1. MG DXBI MM Dig mamm BI DX w/CAD 11/03/2018 3:30 PM 2. MG DXBI MM Dig mamm BI DX w/CAD 06/20/2018 3:05 PM 3. MG SCBI MM Dig screening mamm BI w/CAD 05/23/2018 4:40 PM 4. MG DMSB DIGITAL MAMM-SCREEN BILATERAL 11/19/2010 10:31 AM FINDINGS: MAMMOGRAPHY: Breast composition: The breast is heterogeneously dense, which may obscure small masses. Mass: None. Architectural distortion: No new or suspicious architectural distortion. Calcifications: No new or suspicious calcifications are present Asymmetric density: No new or suspicious asymmetric density is present Skin thickening: None. Axillary adenopathy: None. IMPRESSION: No mammographic evidence of malignancy. Recommend annual screening mammography unless otherwise clinically indicated. ASSESSMENT: BI-RADS category 1: Negative
== END 2023-08-05 23:59 ==
LOC: RAD 10:14
PROVIDERS: PCP Internal Medicine; Visit Provider Internal Medicine
DX: Z12.31 Encounter for screening mammogram for malignant neoplasm of breast (principal)
CPT/HCPCS: 77063; 77067

== ENCOUNTER 2024-03-06 15:30 | Outpatient (CLI) | payer BC, SELFPAY ==
[2024-03-07 09:15] LABS: Influenza A, PCR Not Detected (NotDetected); Influenza B, PCR Not Detected (NotDetected)
[2024-03-07 11:00] LABS: Coronavirus 19, PCR Detected (NotDetected)
== END 2024-03-06 23:59 | disposition home or self-care (01) ==
LOC: LAB.DROPOF 03-07 15:16
PROVIDERS: PCP Internal Medicine; Visit Provider Internal Medicine
DX: J06.9 Acute upper respiratory infection, unspecified (principal)
CPT/HCPCS: 87275; 87276; 87635; 87636

== ENCOUNTER 2024-08-01 11:32 | Emergency (ER) | payer BC, SELFPAY ==
[2024-08-01 11:33] VITALS: BP 149/69; PULSE 79; RESP 20; TEMP 36.8; O2SAT 100; BMI 25.8
[2024-08-01] MEDS: MORPHINE 4MG/ML SYRINGE 4 MG IV (12:14)
[2024-08-01] MEDS: ONDANSETRON 4MG/2ML VIAL 4 MG IV (12:14)
[2024-08-01] MEDS: LACTATED RINGERS 1000ML 1,000 ML 999 ML IV (12:14)
[2024-08-01 12:18] LABS: Microscopic, Urine URINE MICROSCOPIC (MICROSCOPIC)
[2024-08-01 12:18] LABS: Basophils % 0.3 % (0.1-2.0); Eosinophils # 0.1 K/mm3 (0.0-0.4); Eosinophils % 1.4 % (0.1-12.0); Hematocrit 39.4 % (37.0-47.0); Hemoglobin 13.5 g/dL (12.2-16.2); Lymphocytes # 1.7 K/mm3 (0.7-4.5); Lymphocytes % 22.9 % (10-50); Mean Corpuscular HGB Conc 34.3 g/dL (31.8-35.4); Mean Corpuscular Hemoglobin 31.8 pg (27.0-31.2); Mean Corpuscular Volume 92.9 fl (81-99); Mean Platelet Volume 9.7 fl (7.4-10.4); Monocytes # 0.5 K/mm3 (0.1-1.0); Monocytes % 6.6 % (1.7-9.3); Neutrophils % 68.7 % (37.0-80.0); Platelet Count 289 K/mm3 (142-424); Red Blood Count 4.24 M/mm3 (4.20-5.40); Red Cell Distribution Width 12.4 % (11.5-17.5); White Blood Count 7.2 K/mm3 (4.8-10.8)
[2024-08-01 12:19] LABS: Chloride 104 mmol/L (98-107)
--- NOTE | 2024-08-01 12:19 | ED_ITS ---
Discharge Plan Disposition Patient Disposition: Home, Self-Care Condition: Good Prescriptions Prescriptions: New oxycodone 5 mg tablet 5 mg PO Q6H PRN (Reason: pain) Qty: 10 0RF No Action sertraline 50 mg tablet 150 mg PO Q24H tizanidine 4 mg tablet See Rx Instructions PO Q8H PRN (Reason: muscle spasticity) Qty: 30 2RF Rx Instructions: One half or 1 tablet orally every 8 hours PRN; benzonatate 200 mg capsule 200 mg PO TID PRN (Reason: cough) Qty: 30 1RF Referrals Follow up/Referrals: Ramiro Calix MD [Primary Care Provider] - See instructions Activity Restrictions/Add. Instructions Additional Instructions/Restrictions: PLease follow-up with your [facility]/women's health physician with repeat ultrasound in the upcoming weeks. Take all medication as prescribed. Return to the emergency department for any worsening pain vaginal bleeding or any other worsening/new signs or symptoms. Clinical Impressions Clinical Impression: Endometrial thickening on ultrasound, Family history of ovarian cancer, Fibroid, uterine, History of female sterilization Instructions Patient Instructions: DI for Uterine Fibroids, DI for Acute Abdominal Pain Print Language Print Language: Micronesian Discharge ED Provider: Gasper Thompson General Adult HPI <AMBROSE Garcia - Last Filed: 08/01/24 14:08> General Chief complaint: Abdominal Pain Stated complaint: lower back pain, abd cramping Time Seen by Provider: 08/01/24 12:18 Mode of Arrival: Ambulatory Source of Information: Patient Limitations: No Limitations Description of Symptoms (Recalled from ER Triage Doc. by RN): pt is here today for left side pelvic pain that started off and on for last two days, pt has spasms that go on front and back and only other complaints is pain making her nasueated History of Present Illness HPI narrative: 54-year-old female presents to the emergency department with lower abdominal pain/bilateral pelvic pain that started 2 days ago, patient has had on and off pelvic pain as well as irregular periods for the last year, admits to nausea and vomiting for the last several days, denies any fever chills cough congestion sore throat chest pain denies any diarrhea, does admit to some constipation, denies urinary type symptomatology hematuria, no vaginal bleeding, no vaginal discharge, no recent sexual activity no risky sexual behaviors. Initial triage vitals are unremarkable. No real relevant past medical history takes no medication at home occasionally uses [facility]. Has data deficient history of ovarian cyst/uterine ablation and essure procedure. Onset (ago): day(s) Related Data Home Medications ?Medication ?Instructions ?Recorded ?Confirmed sertraline 50 mg tablet 150 mg PO Q24H Depression 02/22/23 08/01/24 Previous Rx's ?Medication ?Instructions ?Recorded tizanidine 4 mg tablet See Rx Instructions PO Q8H PRN 04/18/24 muscle spasticity #30 tabs benzonatate 200 mg capsule 200 mg PO TID PRN cough #30 caps 07/24/24 oxycodone 5 mg tablet 5 mg PO Q6H PRN pain #10 tabs 08/01/24 Allergies Allergy/AdvReac Type Severity Reaction Status Date / Time aspirin Allergy Unknown Verified 08/01/24 11:07 allergy reaction ibuprofen (From DayQuil Allergy Unknown Verified 08/01/24 11:07 Sinus Pressure/Pain) allergy reaction pseudoephedrine (From Allergy Unknown Verified 08/01/24 11:07 DayQuil Sinus Pressure/Pain) [facility] reaction [facility] <AMBROSE Garcia - Last Filed: 08/01/24 14:08> [facility] Disclaimer: The information contained in this section may have been updated after the patient was seen, as this information can be updated by other users. 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 current occupational exposures/hazards: Yes caffeine: Yes Have you lived/traveled outside US in past 30 days?: No Contact w/someone who lives/traveled outside US past 30 days?: No Exposure to someone with infectious disease in past 14 days?: No Do you have a fever (greater than 100.4 F or 38 C)?: No Have you tested positive for COVID-19: No Exposed to someone with COVID-19 in past 14 days?: No Do you have a sore throat?: No Do you have a cough?: No Do you have any weakness?: No Do you have any diarrhea?: No Are you experiencing any unusual bleeding?: No Do you have any muscle aches/pain?: No Do you have any abdominal pain?: No Are you experiencing loss of taste or smell?: No Other Medical History Have you received the Flu Vaccine for this season: No Have you received the Pneumonia Vaccine: No <AMBROSE Garcia - Last Filed: 08/01/24 14:08> ROS Obtained: Yes All systems reviewed & no additional complaints except as documented Physical Exam <AMBROSE Garcia - Last Filed: 08/01/24 14:08> General General appearance: alert and in no apparent distress Head Head exam: atraumatic and normocephalic Eye Eye exam: Present PERRL and EOMI ENT ENT exam: Present mucous membranes moist Neck Neck exam: Present normal inspection Chest Chest inspection: Present normal inspection and symmetric chest wall rise Respiratory Respiratory exam: Present normal lung sounds bilaterally; Absent respiratory distress Cardiovascular Cardiovascular exam: Present regular rate and normal rhythm Abdominal Exam Abdominal exam: Present soft, tenderness and guarding Abdominal tenderness: Present RLQ, LLQ and mild Comment: Mild pelvic pain bilaterally, and lower abdominal quadrant pain with some mild voluntary guarding. Extremities Exam Extremities exam: Present normal inspection Neurological Exam Neurological exam: Present alert and oriented X3 Psychiatric Psychiatric exam: Present normal affect Skin Skin exam: Present warm and dry Medical Decision Making <AMBROSE Garcia - Last Filed: 08/01/24 14:08> Medical Records Medical records reviewed: Yes I reviewed the patient's medical records. Screening: Per USPSTF and CDC recommendations, given the prevalence of disease in our region, it is our hospital?s policy to screen for HIV and viral Hepatitis for all patients aged 18 and over and those with ongoing risk factors. [place] Inquiry Pt receiving controlled substance: Yes [place] was queried for this patient: No Risks and benefits of using a controlled substance: were discussed with pt by me Vital Signs: 08/01/24 11:33 Temperature 98.2 F Temperature Source Oral Pulse Rate [Right Radial] 79 Respiratory Rate 20 Blood Pressure [Right Arm] 149/69 H Blood Pressure Mean [Right Arm] 95 02 Sat by Pulse Oximetry 100 Oxygen Delivery Method Room Air Lab Data Lab Results 08/01/24 11:42: Urine Color Yellow, Urine Appearance Clear, Urine pH 7.0, Ur Specific Sims 1.025, Urine Protein Negative, Urine Glucose (UA) Negative, Urine Ketones Negative, Urine Blood Negative, Urine Nitrate Negative, Urine Bilirubin Negative, Urine Urobilinogen 0.2, Ur Leukocyte Esterase Negative, Urine RBC Occasional, Urine WBC Occasional, Ur Squamous Epith Cells 5-10, Urine Bacteria 1+, Urine Mucus Trace 08/01/24 11:50: WBC 7.2, RBC 4.24, Hgb 13.5, Hct 39.4, MCV 92.9, MCH 31.8 H, MCHC 34.3, RDW 12.4, Plt Count 289, MPV 9.7, Neut % (Auto) 68.7, Lymph % (Auto) 22.9, [place] % (Auto) 6.6, Eos % (Auto) 1.4, Baso % (Auto) 0.3, Neut # (Auto) 5.0, Lymph # (Auto) 1.7, [place] # (Auto) 0.5, Eos # (Auto) 0.1, Baso # (Auto) 0.0, Sodium 139, Potassium 3.9, Chloride 104, Carbon Dioxide 24, Anion Gap 14.9, BUN 15, Creatinine 0.60, Estimated Creat Clear 129, Estimated GFR 104, Est GFR ( Amer) 126, Glucose 98, Calcium 9.6, Total Bilirubin 0.7, AST 33, ALT 21, Alkaline Phosphatase 79, Total Protein 8.0, Albumin 4.7, Globulin 3.3 H, Albumin/Globulin Ratio 1.4 08/01/24 12:00: Lactate 1.5 08/01/24 11:50 08/01/24 11:50 Orders (Tests/Meds): ED MEDICATIONS Discontinued Medications Generic Name Dose Route Start Last Admin Trade Name Freq PRN Reason Stop Dose Admin Lactated Ringer's 1,000 mls @ 999 mls/hr 08/01/24 12:10 08/01/24 12:14 Lactated Ringer's 1000 Ml Bag IV 08/01/24 13:10 999 mls/hr .Q1H1M ONE Administration Iopamidol 75 ml 08/01/24 12:44 08/01/24 12:45 Iopamidol-370 (76%);100ml Bottle IV 08/01/24 12:45 75 ml ONCE ONE Administration Morphine Sulfate 4 mg 08/01/24 12:10 08/01/24 12:14 Morphine 4mg/Ml Syringe IV 08/01/24 12:11 4 mg ONCE ONE Administration Ondansetron HCl 4 mg 08/01/24 12:10 08/01/24 12:14 Ondansetron 4mg/2ml Vial IV 08/01/24 12:11 4 mg ONCE ONE Administration Sodium Chloride 10 ml 08/01/24 12:44 08/01/24 12:45 Sodium Chloride 0.9% 10ml Syr (Rad Only) IV 08/01/24 12:45 10 ml ONCE ONE Administration ORDERS Category Date Time Status CT abdomen pelvis w con Stat Cat Scan 08/01/24 12:28 Completed US transvaginal Stat Exams 08/01/24 12:29 Completed Complete Blood Count Auto Diff Stat Lab 08/01/24 11:50 Completed Comprehensive Metabolic Panel Stat Lab 08/01/24 11:50 Completed Lactic Acid Stat Lab 08/01/24 12:00 Completed UA [Urinalysis and Microscopic] Stat Lab 08/01/24 11:42 Completed Medical Decision Narrative: 54-year-old female presents emerged part with pelvic pain lower abdominal pain differential diagnosis to include but not limited to constipation, gastroenteritis, ileitis, colitis, appendicitis, diverticulitis, nephrolithiasis, acute UTI, acute pyelonephritis, fibroids, torsion, ovarian cyst rupture, among others Will obtain basic laboratory studies lactic acid level urinalysis, will give 1 L LR IV 4 mg IV Zofran for nausea and 4 mg IV morphine for pain. Will obtain CT abdomen pelvis with contrast and transvaginal ultrasound further evaluation as characterization. Discussed patient case with doug Thompson CBC unremarkable CMP unremarkable Urine unremarkable. Lactate within normal limits I discussed this patient's case with the radiologist as well as reviewed the patient's transvaginal ultrasound along the corresponding radiologic report there is a 2.1 x 1.4 cm simple cyst on the left ovary, clinically inconsequential, no follow-up needed, thickened endometrium with concerning for endoluminal fluid could be related to posttreatment sequela differentials would include hyperplasia/neoplasia follow-up with [facility] as needed to essure device appears in place. I reviewed the patient CT abdomen pelvis with contrast along the corresponding radiologic report fibroid uterus is noted otherwise unremarkable CT abdomen pelvis. Discussed these results with the patient at the bedside, patient will be discharged home to self-care, patient will follow-up with [facility] as directed for suspicious findings on the patient's transvaginal ultrasound, will prescribe p.o. analgesia for the pain. Patient voiced understanding and agreed with current treatment plan/discharge plan. Strict ED return precautions were given. Patient voiced understanding of the current treatment plan/discharge plan. <Gasper Thompson MD - Last Filed: 08/01/24 14:14> Vital Signs: 08/01/24 11:33 Temperature 98.2 F Temperature Source Oral Pulse Rate [Right Radial] 79 Respiratory Rate 20 Blood Pressure [Right Arm] 149/69 H Blood Pressure Mean [Right Arm] 95 02 Sat by Pulse Oximetry 100 Oxygen Delivery Method Room Air Lab Data Lab Results 08/01/24 11:42: Urine Color Yellow, Urine Appearance Clear, Urine pH 7.0, Ur Specific Sims 1.025, Urine Protein Negative, Urine Glucose (UA) Negative, Urine Ketones Negative, Urine Blood Negative, Urine Nitrate Negative, Urine Bilirubin Negative, Urine Urobilinogen 0.2, Ur Leukocyte Esterase Negative, Urine RBC Occasional, Urine WBC Occasional, Ur Squamous Epith Cells 5-10, Urine Bacteria 1+, Urine Mucus Trace 08/01/24 11:50: WBC 7.2, RBC 4.24, Hgb 13.5, Hct 39.4, MCV 92.9, MCH 31.8 H, MCHC 34.3, RDW 12.4, Plt Count 289, MPV 9.7, Neut % (Auto) 68.7, Lymph % (Auto) 22.9, [place] % (Auto) 6.6, Eos % (Auto) 1.4, Baso % (Auto) 0.3, Neut # (Auto) 5.0, Lymph # (Auto) 1.7, [place] # (Auto) 0.5, Eos # (Auto) 0.1, Baso # (Auto) 0.0, Sodium 139, Potassium 3.9, Chloride 104, Carbon Dioxide 24, Anion Gap 14.9, BUN 15, Creatinine 0.60, Estimated Creat Clear 129, Estimated GFR 104, Est GFR ( Amer) 126, Glucose 98, Calcium 9.6, Total Bilirubin 0.7, AST 33, ALT 21, Alkaline Phosphatase 79, Total Protein 8.0, Albumin 4.7, Globulin 3.3 H, Albumin/Globulin Ratio 1.4 08/01/24 12:00: Lactate 1.5 Orders (Tests/Meds): ED MEDICATIONS Discontinued Medications Generic Name Dose Route Start Last Admin Trade Name Rufus PRN Reason Stop Dose Admin Lactated Ringer's 1,000 mls @ 999 mls/hr 08/01/24 12:10 08/01/24 12:14 Lactated Ringer's 1000 Ml Bag IV 08/01/24 13:10 999 mls/hr .Q1H1M ONE Administration Iopamidol 75 ml 08/01/24 12:44 08/01/24 12:45 Iopamidol-370 (76%);100ml Bottle IV 08/01/24 12:45 75 ml ONCE ONE Administration Morphine Sulfate 4 mg 08/01/24 12:10 08/01/24 12:14 Morphine 4mg/Ml Syringe IV 08/01/24 12:11 4 mg ONCE ONE Administration Ondansetron HCl 4 mg 08/01/24 12:10 08/01/24 12:14 Ondansetron 4mg/2ml Vial IV 08/01/24 12:11 4 mg ONCE ONE Administration Sodium Chloride 10 ml 08/01/24 12:44 08/01/24 12:45 Sodium Chloride 0.9% 10ml Syr (Rad Only) IV 08/01/24 12:45 10 ml ONCE ONE Administration ORDERS Category Date Time Status CT abdomen pelvis w con Stat Cat Scan 08/01/24 12:28 Completed US transvaginal Stat Exams 08/01/24 12:29 Completed Complete Blood Count Auto Diff Stat Lab 08/01/24 11:50 Completed Comprehensive Metabolic Panel Stat Lab 08/01/24 11:50 Completed Lactic Acid Stat Lab 08/01/24 12:00 Completed UA [Urinalysis and Microscopic] Stat Lab 08/01/24 11:42 Completed Medical Decision Narrative: 54-year-old female presents emerged part with pelvic pain lower abdominal pain differential diagnosis to include but not limited to constipation, gastroenteritis, ileitis, colitis, appendicitis, diverticulitis, nephrolithiasis, acute UTI, acute pyelonephritis, fibroids, torsion, ovarian cyst rupture, among others Will obtain basic laboratory studies lactic acid level urinalysis, will give 1 L LR IV 4 mg IV Zofran for nausea and 4 mg IV morphine for pain. Will obtain CT abdomen pelvis with contrast and transvaginal ultrasound further evaluation as characterization. Discussed patient case with infusion Dr. Thompson CBC unremarkable CMP unremarkable Urine unremarkable. Lactate within normal limits I discussed this patient's case with the radiologist as well as reviewed the patient's transvaginal ultrasound along the corresponding radiologic report there is a 2.1 x 1.4 cm simple cyst on the left ovary, clinically inconsequential, no follow-up needed, thickened endometrium with concerning for endoluminal fluid could be related to posttreatment sequela differentials would include hyperplasia/neoplasia follow-up with [facility] as needed to essure device appears in place. I reviewed the patient CT abdomen pelvis with contrast along the corresponding radiologic report fibroid uterus is noted otherwise unremarkable CT abdomen pelvis. Discussed these results with the patient at the bedside, patient will be discharged home to self-care, patient will follow-up with [facility] as directed for suspicious findings on the patient's transvaginal ultrasound, will prescribe p.o. analgesia for the pain. Patient voiced understanding and agreed with current treatment plan/discharge plan. Strict ED return precautions were given. Patient voiced understanding of the current treatment plan/discharge plan. I was consulted by the ROLLY, and we discussed the complexity of the problems being addressed. I approved the treatment and management plan for this patient's care in the Emergency Department, thus performing a substantive portion of the medical decision making. Gasper Thompson MD Critical Care <AMBROSE Garcia - Last Filed: 08/01/24 14:08> Critical Care Time Critical Care Time: No
[2024-08-01 12:20] LABS: Albumin Level 4.7 g/dl (3.5-5.0); Potassium 3.9 mmoL/L (3.5-5.1); Sodium 139 mmol/L (136-145)
[2024-08-01 12:21] LABS: Appearance,Urine CLEAR (Clear); Bilirubin,Urine Negative (Negative); Blood, Urine Negative (Negative); Color,Urine YELLOW (Yellow); Glucose,Urine (UA) Negative (Negative); Ketones,Urine Negative (Negative); Leukocyte Esterase,Urine Negative (Negative); Nitrate,Urine Negative (Negative); Protein,Urine Negative (Negative); Specific Gravity, Urine 1.025 (1.005-1.030); Urobilinogen,Urine 0.2 EU/dl (0.2)
[2024-08-01 12:22] LABS: Blood Urea Nitrogen 15 mg/dl (7-17); Creatinine Clearance Estimated 129 mL/min (50-200); Estimated Glomerular Filt Rate 104 ml/min (>60); GFR (African American) 126 ML/MIN (>60)
[2024-08-01 12:23] LABS: Alanine Aminotransferase 21 U/L (12-78); Albumin/Globulin Ratio 1.4 (1.1-1.8); Alkaline Phosphatase 79 U/L (38-126); Anion Gap 14.9 mEq/L (5-15); Aspartate Amino Transferase 33 U/L (14-36); Bilirubin,Total 0.7 mg/dl (0.2-1.3); Calcium 9.6 mg/dl (8.4-10.2); Carbon Dioxide 24 mmol/L (22.0-30.0); Globulin 3.3 g/dL (1.3-3.2); Glucose 98 mg/dl (74-100)
--- NOTE | 2024-08-01 12:28 | CT_ITS ---
FINAL REPORT TECHNIQUE: After the administration of intravenous contrast, axial images were obtained through the abdomen and pelvis by computed tomography. The study was performed with techniques to keep radiation dose as low as reasonably achievable, (ALARA). Individual dose reduction techniques using automated exposure control or adjustment of mA and/or kV according to the patient's size were employed. CLINICAL HISTORY: Bilateral pelvic pain/lower abdominal pain nausea COMPARISON: None FINDINGS: Abdomen: The lung bases are clear. The liver parenchyma is homogeneous. The gallbladder is present. The spleen, pancreas, adrenals and kidneys appear unremarkable. The aorta is normal in caliber. There is no free fluid or adenopathy. Pelvis: The appendix is normal. The urinary bladder is unremarkable. The myometrium is heterogeneous with a low-attenuation focus measuring up to 2.7 cm, probable degenerative fibroid. Essure coils are noted in the fallopian tubes bilaterally. There is no free fluid or adenopathy. IMPRESSION: Fibroid uterus. Reviewed, Interpreted and Dictated by Kenoyn Grande MD Transcribed by Amie Real Authenticated and [facility]
--- NOTE | 2024-08-01 12:29 | US_ITS ---
PROCEDURE INFORMATION: Exam: US Pelvis, Transvaginal, Non-Obstetric Exam date and time: 08/01/2024 12:38 PM Age: 54 years old Clinical indication: Perianal pain; Additional info: Pelvic pain TECHNIQUE: Imaging protocol: Real-time transvaginal pelvic (non-obstetric) ultrasound with image documentation. Transvaginal imaging was used for better evaluation of the endometrium, adnexa, and/or cervix. COMPARISON: TRANVAG US transvaginal 01/12/2018 1:35 PM FINDINGS: Uterus: Endometrium measures 1.9 cm in thickness and is heterogeneous. Questionable fluid within the endometrial canal. Uterus measures 8.6 x 5.2 x 5 cm. Partially seen Essure device. No large myometrial lesions. Right ovary/adnexa: Right ovary measures 2.5 x 2.5 x 1.6 cm. Normal right ovarian vascularity. Left ovary/adnexa: Left ovary measures 3.3 x 2.3 x 1.3 cm. 2.1 x 1.4 cm simple cyst in the left ovary. Normal left ovarian vascularity. Urinary bladder: Urinary bladder is limited. Intraperitoneal space: No free fluid. IMPRESSION: 1. 2.1 x 1.4 cm simple cyst in the left ovary. Clinically inconsequential finding. No follow-up is needed. (Reference: Daria, 2019) 2. Thickened endometrium with concern for endoluminal fluid. Could be related to posttreatment sequela. Differential would include hyperplasia/neoplasia. Follow-up with OBGYN is recommended. 3. The Essure device appears in place. COMMENTS: Findings were discussed with Sesar Hay at 08/01/2024 1:36 PM EST. REFERENCES: Daria Simons et al. Simple Adnexal Cysts: SRU Consensus Conference Update on Follow-up and Reporting. Radiology. 2019;293(2):[id number].
[2024-08-01 12:41] LABS: RBC,Urine Occasional #/hpf (0-3); WBC,Urine Occasional #/hpf (0-3)
[2024-08-01 12:42] LABS: Bacteria,Urine 1+ /lpf; Mucus,Urine Trace /lpf
[2024-08-01] MEDS: IOPAMIDOL-370 (76%);100ML BOTTLE 75 ML IV (12:45)
[2024-08-01] MEDS: SODIUM CHLORIDE 0.9% 10ML SYR (RAD ONLY) 10 ML IV (12:45)
--- NOTE | 2024-08-01 13:11 | PC.NURSE ---
pt returned from ultrasound via vascular radiologist and wheelchair
[2024-08-01 13:13] LABS: Lactic Acid 1.5 mmol/L (0.7-2.1)
[2024-08-01 14:18] VITALS: BP 167/84; PULSE 72; RESP 20; TEMP 36.8; O2SAT 94
== END 2024-08-01 14:19 | disposition home or self-care (01) ==
PROVIDERS: Emergency Provider Emergency Medicine; PCP Internal Medicine
DX: D25.9 Leiomyoma of uterus, unspecified (principal); R93.89 Abnormal findings on diagnostic imaging of other specified body structures; R10.30 Lower abdominal pain, unspecified; R10.2 Pelvic and perineal pain; R11.2 Nausea with vomiting, unspecified; R09.81 Nasal congestion; M54.50 Low back pain, unspecified; Z80.41 Family history of malignant neoplasm of ovary; Z98.890 Other specified postprocedural states
CPT/HCPCS: 74177; 76830; 80053; 81001; 83605; 85025; 96361; 96374; 96375; 99285; J2270; J2405; J7120; Q9967

== ENCOUNTER 2024-08-04 09:14 | Emergency (ER) | payer BC, SELFPAY ==
[2024-08-04] VITALS (8 sets, daily range): BP systolic 133–218; BP diastolic 76–134; PULSE 59–104; RESP 16–30; TEMP 36.5–37.1; O2SAT 97–100; BMI 25.8
[2024-08-04 09:43] LABS: Microscopic, Urine URINE MICROSCOPIC (MICROSCOPIC)
[2024-08-04] MEDS: KETOROLAC 30MG/ML VIAL 15 MG IV (09:44)
[2024-08-04] MEDS: ONDANSETRON 4MG/2ML VIAL 4 MG IV (09:44)
[2024-08-04] MEDS: HYDROMORPHONE 2MG/ML SYRINGE 1 MG IV (09:44)
[2024-08-04 09:45] LABS: Appearance,Urine SL CLOUDY (Clear); Basophils % 0.3 % (0.1-2.0); Bilirubin,Urine Negative (Negative); Blood, Urine 2+ (Negative); Color,Urine YELLOW (Yellow); Eosinophils # 0.1 K/mm3 (0.0-0.4); Eosinophils % 1.7 % (0.1-12.0); Glucose,Urine (UA) Negative (Negative); Hematocrit 40.9 % (37.0-47.0); Hemoglobin 13.6 g/dL (12.2-16.2); Ketones,Urine Negative (Negative); Leukocyte Esterase,Urine Negative (Negative); Lymphocytes % 28.4 % (10-50); Mean Corpuscular HGB Conc 33.3 g/dL (31.8-35.4); Mean Corpuscular Hemoglobin 31.6 pg (27.0-31.2); Mean Corpuscular Volume 95.1 fl (81-99); Mean Platelet Volume 9.2 fl (7.4-10.4); Monocytes # 0.4 K/mm3 (0.1-1.0); Monocytes % 5.6 % (1.7-9.3); Neutrophils # 4.5 K/mm3 (1.8-7.8); Neutrophils % 63.9 % (37.0-80.0); Nitrate,Urine Negative (Negative); PH,Urine 8.5 (5.0-8.5); Platelet Count 307 K/mm3 (142-424); Protein,Urine Negative (Negative); Urobilinogen,Urine 0.2 EU/dl (0.2); White Blood Count 7.1 K/mm3 (4.8-10.8)
[2024-08-04 09:49] LABS: Albumin Level 4.6 g/dl (3.5-5.0); Chloride 103 mmol/L (98-107); Sodium 135 mmol/L (136-145)
[2024-08-04 09:51] LABS: Blood Urea Nitrogen 16 mg/dl (7-17); Creatinine Clearance Estimated 111 mL/min (50-200); Estimated Glomerular Filt Rate 87 ml/min (>60); GFR (African American) 105 ML/MIN (>60)
[2024-08-04 09:52] LABS: Activated Partial Thrombo Time 25.9 seconds (22.5-28.5); Alanine Aminotransferase 23 U/L (12-78); Albumin/Globulin Ratio 1.4 (1.1-1.8); Alkaline Phosphatase 82 U/L (38-126); Aspartate Amino Transferase 40 U/L (14-36); Bilirubin,Total 0.8 mg/dl (0.2-1.3); Calcium 9.5 mg/dl (8.4-10.2); Carbon Dioxide 26 mmol/L (22.0-30.0); Globulin 3.4 g/dL (1.3-3.2); Glucose 116 mg/dl (74-100); HDL Cholesterol 64 mg/dl (40-60); INR 0.87 (0.9-1.1); Lipase 238 U/L (23-300); Prothrombin Time 9.7 seconds (9.2-12.1); Triglycerides 171 mg/dl (30-150); VLDL Cholesterol 34 mg/dL (0-40)
[2024-08-04 09:53] LABS: Chol/HDL Ratio 4.3 (1-3.5); Cholesterol 272 mg/dl (140-200)
[2024-08-04 09:54] LABS: Bacteria,Urine 1+ /lpf
--- NOTE | 2024-08-04 09:54 | ED_ITS ---
Discharge Plan Disposition Patient Disposition: Home, Self-Care Prescriptions Prescriptions: New ketorolac 10 mg tablet 10 mg PO Q8H PRN (Reason: pain) 1 Days Qty: 14 0RF esomeprazole magnesium 20 mg capsule,delayed release(DR/EC) 40 mg PO DAILY 28 Days Qty: 56 0RF No Action sertraline 100 mg tablet 100 mg PO DAILY Patient Comments: TAKE 1 & 1/2 (ONE & ONE-HALF) TABLETS BY MOUTH ONCE DAILY ondansetron 4 mg tablet,disintegrating 4 mg PO Q6H Qty: 30 0RF tizanidine 4 mg tablet See Rx Instructions PO Q8H PRN (Reason: muscle spasticity) Qty: 30 2RF Rx Instructions: One half or 1 tablet orally every 8 hours PRN; oxycodone 5 mg tablet 5 mg PO Q6H PRN (Reason: pain) Qty: 10 0RF Referrals Follow up/Referrals: Ramiro Calix MD [Primary Care Provider] - See instructions Activity Restrictions/Add. Instructions Additional Instructions/Restrictions: Call your family doctor to establish care for this visit to the emergency department and schedule follow-up within 48 hours to ensure improvement. If you have any worsening of your condition or any other concerning signs or symptoms, return to the emergency department or your primary care doctor for further evaluation. Esomeprazole 40 mg each night. Toradol only as needed in the setting of gastritis. Call ROAD SUPERVISOR to see if you can potentially push appointment forward. Clinical Impressions Clinical Impression: Fibroid, uterine, Pelvic pain Print Language Print Language: Surinamese Discharge ED Provider: Gasper Thompson General Adult HPI General Chief complaint: PAIN Stated complaint: severe abd pain Time Seen by Provider: 08/04/24 09:16 Mode of Arrival: Ambulatory Source of Information: Patient Limitations: No Limitations Description of Symptoms (Recalled from ER Triage Doc. by RN): Pt. presents to the ED with complaints of lower back, lower abdomen, and bilateral hip pain since last night, but worsening this morning. She rates her pain a 8/10. She took an oxycodone 5 mg around 6 am and states it hasn't helped hardly at all. She was seen recently in the ED and by her [facility] PROJECT MANAGER doctor for a thickened endometrium and is scheduled for a procedure in a few weeks. History of Present Illness HPI narrative: Please note that above description of symptoms, in this electronic medical record under categorization of recalled from ER triage doctor by RN are reflective of an initial nursing assessment, however, is not reflective of my full history and physical exam that was personally taken and clarified. Consequentially, this preceding description of symptoms, which may include the patient's categorized chief complaint in the EMR, do not reflect my personal clinical impression, and the ultimate description of history of present illness and patient stated complaints should be deferred to this section of the note. Unless stated otherwise or congruent with this section of the note, additional signs, symptoms, or incongruence should be interpreted as inaccurate with my clinical impression. Related Data Home Medications ?Medication ?Instructions ?Recorded ?Confirmed sertraline 100 mg tablet 100 mg PO DAILY 08/02/24 08/04/24 Previous Rx's ?Medication ?Instructions ?Recorded tizanidine 4 mg tablet See Rx Instructions PO Q8H PRN 04/18/24 muscle spasticity #30 tabs oxycodone 5 mg tablet 5 mg PO Q6H PRN pain #10 tabs 08/01/24 ondansetron 4 mg disintegrating 4 mg PO Q6H #30 tabs 08/02/24 tablet esomeprazole magnesium 20 mg 40 mg (2 x 20 mg) PO DAILY 28 days 08/04/24 capsule,delayed release #56 caps ketorolac 10 mg tablet 10 mg PO Q8H PRN pain 1 day #14 08/04/24 tabs Allergies Allergy/AdvReac Type Severity Reaction Status Date / Time aspirin Allergy Unknown Verified 08/02/24 08:33 allergy reaction nickel Allergy Rash Verified 08/04/24 09:36 pseudoephedrine (From Allergy Unknown Verified 08/02/24 08:33 DayQuil Sinus Pressure/Pain) allergy reaction PFSH PFSH Disclaimer: The information contained in this section may have been updated after the patient was seen, as this information can be updated by other users. 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 current occupational exposures/hazards: Yes caffeine: Yes Have you lived/traveled outside US in past 30 days?: No Contact w/someone who lives/traveled outside US past 30 days?: No Exposure to someone with infectious disease in past 14 days?: No Do you have a fever (greater than 100.4 F or 38 C)?: No Have you tested positive for COVID-19: No Exposed to someone with COVID-19 in past 14 days?: No Do you have a sore throat?: No Do you have a cough?: No Do you have any weakness?: No Do you have any diarrhea?: No Are you experiencing any unusual bleeding?: No Do you have any muscle aches/pain?: No Do you have any abdominal pain?: No Are you experiencing loss of taste or smell?: No Other Medical History Have you received the Flu Vaccine for this season: No Have you received the Pneumonia Vaccine: No ROS Obtained: Yes All systems reviewed & no additional complaints except as documented Physical Exam General General appearance: alert and in distress (Tearful, appears to be in mild to moderate pain) Head Head exam: atraumatic and normocephalic Eye Eye exam: Present normal appearance, PERRL and EOMI Neck Neck exam: Present normal inspection, full ROM and trachea midline Respiratory Respiratory exam: Absent respiratory distress, wheezes, stridor, accessory muscle use or prolonged expiratory phase Cardiovascular Cardiovascular exam: Present other (Pulses equal symmetric in upper and lower extremities) Abdominal Exam Abdominal exam: Present soft and tenderness; Absent distention, guarding, rebound, rigidity or pulsatile mass Extremities Exam Extremities exam: Absent edema Back Exam Back exam: Present CVA tenderness (R); Absent CVA tenderness (L) Neurological Exam Neurological exam: Present alert, oriented X3 and CN II-XII intact; Absent motor sensory deficit Skin Skin exam: Present warm and dry; Absent diaphoresis or erythema Medical Decision Making Medical Records Medical records reviewed: Yes I reviewed the patient's medical records. Screening: Per USPSTF and CDC recommendations, given the prevalence of disease in our region, it is our hospital?s policy to screen for HIV and viral Hepatitis for all patients aged 18 and over and those with ongoing risk factors. [place] Inquiry Pt receiving controlled substance: No [place] was queried for this patient: No Vital Signs: 08/04/24 09:21 08/04/24 09:22 08/04/24 09:30 Temperature Temperature Source Pulse Rate 103 H 87 76 Pulse Rate [Right Brachial] Respiratory Rate Blood Pressure 199/134 H 218/103 H 193/106 H Blood Pressure [Right Arm] Blood Pressure Mean 141 141 135 Blood Pressure Mean [Right Arm] Blood Pressure Source [Right Arm] Blood Pressure Position [Right Arm] 02 Sat by Pulse Oximetry 100 100 100 Oxygen Delivery Method Room Air Room Air Room Air 08/04/24 09:36 08/04/24 10:00 08/04/24 10:30 Temperature 98.8 F Temperature Source Oral Pulse Rate 72 64 Pulse Rate [Right Brachial] 104 H Respiratory Rate 30 H Blood Pressure 153/76 H 176/88 H Blood Pressure [Right Arm] 218/103 H Blood Pressure Mean Blood Pressure Mean [Right Arm] 141 Blood Pressure Source [Right Arm] Automatic Cuff Blood Pressure Position [Right Arm] Sitting 02 Sat by Pulse Oximetry 100 100 99 Oxygen Delivery Method Room Air Room Air Room Air 08/04/24 11:00 Temperature Temperature Source Pulse Rate 69 Pulse Rate [Right Brachial] Respiratory Rate Blood Pressure 150/96 H Blood Pressure [Right Arm] Blood Pressure Mean Blood Pressure Mean [Right Arm] Blood Pressure Source [Right Arm] Blood Pressure Position [Right Arm] 02 Sat by Pulse Oximetry 100 Oxygen Delivery Method Room Air Lab Data Lab Results 08/04/24 09:29: WBC 7.1, RBC 4.30, Hgb 13.6, Hct 40.9, MCV 95.1, MCH 31.6 H, MCHC 33.3, RDW 12.0, Plt Count 307, MPV 9.2, Neut % (Auto) 63.9, Lymph % (Auto) 28.4, [place] % (Auto) 5.6, Eos % (Auto) 1.7, Baso % (Auto) 0.3, Neut # (Auto) 4.5, Lymph # (Auto) 2.0, [place] # (Auto) 0.4, Eos # (Auto) 0.1, Baso # (Auto) 0.0, PT 9.7, INR 0.87 L, APTT 25.9, Sodium 135 L, Potassium 4.0, Chloride 103, Carbon Dioxide 26, Anion Gap 10.0, BUN 16, Creatinine 0.70, Estimated Creat Clear 111, Estimated GFR 87, Est GFR ( Amer) 105, Glucose 116 H, Hemoglobin A1c 5.0, Lactate 2.0, Calcium 9.5, Total Bilirubin 0.8, AST 40 H, ALT 23, Alkaline Phosphatase 82, Total Protein 8.0, Albumin 4.6, Globulin 3.4 H, Albumin/Globulin Ratio 1.4, Triglycerides 171 H, Cholesterol 272 H, LDL Cholesterol Direct 165.11 H, VLDL Cholesterol 34, HDL Cholesterol 64 H, Cholesterol/HDL Ratio 4.3 H, Lipase 238, HCG, Quant < 2, Urine Color Yellow, Urine Appearance Sl cloudy, Urine pH 8.5, Ur Specific [place] 1.020, Urine Protein Negative, Urine Glucose (UA) Negative, Urine Ketones Negative, Urine Blood 2+ A, Urine Nitrate Negative, Urine Bilirubin Negative, Urine Urobilinogen 0.2, Ur Leukocyte Esterase Negative, Urine RBC 3-5, Urine WBC 5-10, Ur Squamous Epith Cells 5-10, Urine Bacteria 1+, Urine Opiates Screen Positive H, Urine Methadone Screen Negative, Ur Barbituates Screen Negative, Ur Phencyclidine Scrn Negative, Ur Amphetamines Screen Negative, U Benzodiazepines Scrn Negative, Urine Cocaine Screen Negative, U Marijuana (THC) Screen Positive H 08/04/24 09:29 08/04/24 09:29 Orders (Tests/Meds): ED MEDICATIONS Discontinued Medications Generic Name Dose Route Start Last Admin Trade Name Freq PRN Reason Stop Dose Admin Hydromorphone HCl 1 mg 08/04/24 09:37 08/04/24 09:44 Hydromorphone 2mg/Ml Syringe IV 08/04/24 09:38 1 mg ONCE ONE Administration Ketorolac Tromethamine 15 mg 08/04/24 09:37 08/04/24 09:44 Ketorolac 30mg/Ml Vial IV 08/04/24 09:38 15 mg ONCE ONE Administration Ondansetron HCl 4 mg 08/04/24 09:37 08/04/24 09:44 Ondansetron 4mg/2ml Vial IV 08/04/24 09:38 4 mg ONCE ONE Administration ORDERS Category Date Time Status Complete Blood Count Auto Diff Stat Lab 08/04/24 09:29 Completed Comprehensive Metabolic Panel Stat Lab 08/04/24 09:29 Completed Drug Screen,Urine Stat Lab 08/04/24 Completed HCG,Quantitative Stat Lab 08/04/24: Completed Hemoglobin A1C Stat Lab 08/04/24: Completed Lactic Acid Stat Lab 08/04/24 Completed Lipase Stat Lab 08/04/24 Completed Lipid Panel Stat Lab 08/04/24 Completed PT INR [Prothrombin Time INR] Stat Lab 08/04/24 Completed PTT [Activated Partial Thrombo Time] Stat Lab 08/04/24 Completed Urinalysis and Microscopic Stat Lab 08/04/24 Completed Medical Decision Narrative: This is a 54-year-old female with history of endometrial ablation, fibroid uterus with chronic abdominal pain presenting with acute on chronic abdominal pain. Patient actually came in to see me a couple days prior to this for abdominal pain. She was sent home with pain medications and RO[facility] SUPER[facility] follow-up. Patient is supposed to be seen by ROAD SUPERVISOR in a couple of weeks, however came in today because her symptoms are worsening. She states that this happens every time I am supposed to start my period. She states that this is about the time of month that she would expect this to get worse. It is 8 out of 10, cramping/stabbing, lower pelvic, primarily on the left side, but now radiates over to the right side. States that she is also having pain in my hip bones. States that she has not had a bowel movement in 3 to 4 days and the last time she had a bowel movement was small, hard stool balls requiring straining. No blood in her stool. Is having vaginal bleeding that spotting to brown. Not passing clots. No fevers, chills, systemic signs or symptoms, weakness, chest pain, shortness of breath, or any other concerns. History was obtained via conversation with patient. On arrival, patient hemodynamically stable, alert, oriented x4, appropriate, GCS 15, moving all extremities spontaneously, pupils equal and reactive to light. Full physical exam performed and significant for 54-year-old female who appears to be in mild to moderate distress secondary pain. She is tearful. She is holding her abdomen and laying on her right side. She does have right flank tenderness. Abdomen is soft, tender, but no evidence of peritonitis. Nondistended. Differential includes fibroids, endometriosis, PUD, gastritis, enteritis, gastroenteritis, pancreatitis, SBO, colitis, diverticulitis, nephrolithiasis, UTI, cholecystitis, choledocholithiasis, appendicitis, torsion, hepatitis, aortic pathology, mesenteric ischemia among others. Patient placed on continuous cardiac monitoring and continuous pulse ox with initial blood pressure 218/103, heart rate 104, saturation 100% on room air breathing 30 times per minute. Patient was given Toradol, Dilaudid, Zofran for symptomatic management and correction of underlying abnormalities. Workup independently interpreted and significant for nonactionable CBC, chemistry. Negative . Negative lipase. On independent interpretation of imaging, urinalysis without concern for UTI. UDS opiate and THC positive. I independently interpreted patient's CT scan that was done on 08/01/2024 just 3 days prior to this and there are no acute intra-abdominal abnormalities other than chronic pelvic findings. I consider doing a CT angiogram of the abdomen and pelvis, but patient has negative labs, with meds given here in the emergency department, patient's pain 2 out of 10 and much more tolerable states she feels much better. Patient has normal white count, no concerns for acute intra- abdominal surgical emergency, vascular abnormality, etc. Scan not deemed necessary. On reevaluation, patient states she feeling much better, 2 out of 10. I discussed calling ROAD SUPERVISOR on patient's behalf, she stated that she will call again today and let them know that she was seen here and is feeling little better after pain meds. Because patient has history of gastritis, conversation regarding NSAIDs had for home-going. Patient would like to trial NSAIDs, because of this, also to be sent home with esomeprazole. Given patient presentation, workup, history, this most likely represents pelvic pain in the setting of fibroid uterus and menses. Because patient at baseline without signs or symptoms of clinical decompensation, deemed appropriate for discharge. Results were relayed to patient who voiced understanding and were agreeable to outpatient management and follow up. I discussed my clinical impression with patient and answered all questions. At this time, the evidence for any other entities in the differential is insufficient to warrant any further testing or ED observation. This was explained as well. Advisory was given that persistent or worsening symptoms require further evaluation. I confirmed the understanding of this discussion. Can Dragger disclaimer Much of this encounter note is an electronic roll forming machine set up mechanic spoken language to printed text. Electronic roll forming machine set up mechanic of the spoken language may permit errors. Although I have reviewed the note, some errors may still exist. Critical Care Critical Care Time Critical Care Time: No
[2024-08-04 10:04] LABS: Direct LDL Cholesterol 165.11 mg/dL (100-129); Opiate Screen,Urine Positive ng/ml (<300)
[2024-08-04 10:05] LABS: Phencyclidine Screen,Urine Negative ng/ml (<25)
[2024-08-04 10:06] LABS: Amphetamine/Metha Screen,Urine Negative ng/ml (<1000)
[2024-08-04 10:07] LABS: Barbiturates Screen,Urine Negative ng/ml (<200); Benzodiazepines Screen,Urine Negative ng/ml (<200)
[2024-08-04 10:08] LABS: Methadone Screen,Urine Negative ng/ml (<300)
[2024-08-04 10:09] LABS: Cannabinoid Screen,Urine Positive ng/ml (<50); Cocaine Screen,Urine Negative ng/ml (<300); HCG,Quantitative < 2 mIU/ml (0-5.42)
== END 2024-08-04 11:35 | disposition home or self-care (01) ==
PROVIDERS: Emergency Provider Emergency Medicine; PCP Internal Medicine
DX: D25.9 Leiomyoma of uterus, unspecified (principal); R10.2 Pelvic and perineal pain; M54.50 Low back pain, unspecified; R10.30 Lower abdominal pain, unspecified; M25.551 Pain in right hip; M25.552 Pain in left hip
CPT/HCPCS: 80053; 80061; 80307; 81001; 83036; 83605; 83690; 84702; 85025; 85610; 85730; 96374; 96375; 99283; J1171; J1885; J2405

== ENCOUNTER 2024-08-11 12:30 | Outpatient (CLI) | payer BC, SELFPAY ==
[2024-08-11 12:41] LABS: Basophils % 0.6 % (0.1-2.0); Eosinophils # 0.1 K/mm3 (0.0-0.4); Eosinophils % 2.1 % (0.1-12.0); Hematocrit 36.9 % (37.0-47.0); Hemoglobin 12.5 g/dL (12.2-16.2); Lymphocytes # 1.7 K/mm3 (0.7-4.5); Lymphocytes % 32.8 % (10-50); Mean Corpuscular HGB Conc 33.9 g/dL (31.8-35.4); Mean Corpuscular Hemoglobin 32.2 pg (27.0-31.2); Mean Corpuscular Volume 95.1 fl (81-99); Mean Platelet Volume 9.4 fl (7.4-10.4); Monocytes # 0.4 K/mm3 (0.1-1.0); Monocytes % 7.1 % (1.7-9.3); Neutrophils % 57.2 % (37.0-80.0); Platelet Count 261 K/mm3 (142-424); Red Blood Count 3.88 M/mm3 (4.20-5.40); Red Cell Distribution Width 12.2 % (11.5-17.5); White Blood Count 5.2 K/mm3 (4.8-10.8)
[2024-08-11 13:30] LABS: Alanine Aminotransferase 23 U/L (12-78); Albumin Level 4.3 g/dl (3.5-5.0); Albumin/Globulin Ratio 1.7 (1.1-1.8); Alkaline Phosphatase 69 U/L (38-126); Anion Gap 11.5 mEq/L (5-15); Aspartate Amino Transferase 26 U/L (14-36); Bilirubin,Total 0.2 mg/dl (0.2-1.3); Blood Urea Nitrogen 24 mg/dl (7-17); Calcium 9.8 mg/dl (8.4-10.2); Carbon Dioxide 29 mmol/L (22.0-30.0); Chloride 103 mmol/L (98-107); Estimated Glomerular Filt Rate 87 ml/min (>60); GFR (African American) 105 ML/MIN (>60); Globulin 2.6 g/dL (1.3-3.2); Glucose 104 mg/dl (74-100); Potassium 4.5 mmoL/L (3.5-5.1); Sodium 139 mmol/L (136-145); Total Protein,Serum 6.9 g/dl (6.3-8.2)
[2024-08-11 13:49] LABS: HCG,Quantitative < 2 mIU/ml (0-5.42)
[2024-08-11 14:01] VITALS: BMI 25.8
--- NOTE | 2024-08-11 14:01 | ECG_ITS ---
APPROVED REPORT Exam: Resting ECG HR:66 bpm ECG Measurements Heart Rate 66 AXES KS 132 P 53 QRSd 90 QRS 89 QT 392 T 33 QTc 406 Conclusion SINUS RHYTHM NONSPECIFIC T-WAVE ABNORMALITY BORDERLINE ECG UNCONFIRMED REPORT Electronically signed by : Elliot Roa MD 08/12/2024 12:41:15
== END 2024-08-11 23:59 | disposition home or self-care (01) ==
PROVIDERS: PCP Internal Medicine; Visit Provider Obstetrics & Gynecology
DX: R93.89 Abnormal findings on diagnostic imaging of other specified body structures (principal)
CPT/HCPCS: 36415; 80053; 84702; 85025; 93005

== ENCOUNTER 2024-08-17 06:30 | Day surgery (SDC) | payer BC, SELFPAY ==
[2024-08-11 13:33] VITALS: BMI 25.8
[2024-08-17] VITALS (9 sets, daily range): BP systolic 145–179; BP diastolic 78–90; PULSE 65–102; RESP 16–28; TEMP 36.3–36.8; O2SAT 96–100
[2024-08-17 06:52] LABS: Urine Pregnancy, HCG Qual. Negative (Negative)
--- NOTE | 2024-08-17 08:28 | P.PNANES_ITS ---
[facility] Disclaimer: The information contained in this section may have been updated after the patient was seen, as this information can be updated by other users. Medical History Capsulitis of metatarsophalangeal (MTP) joints of both feet Surgical History (Updated 08/17/24 @ 06:47 by Boaz Melgar RN) History of endometrial ablation History of foot surgery History of colonoscopy History of esophagogastroduodenoscopy (EGD) Family History (Updated 08/17/24 @ 06:48 by Boaz Melgar RN) Other Cancer Family history of COPD (chronic obstructive pulmonary disease) Family history of Churg-Geovanny syndrome Family history of diabetes mellitus Family history of heart disease Social History (Updated 08/11/24 @ 13:31 by Boaz Melgar RN) Smoking Status: Never smoker second hand exposure: No alcohol intake: never substance use type: denies use current occupational status: employed Travel in the last 8 weeks: None household members: spouse housing: house 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 Hysteroscopy. Consent for Planned Operative Procedure(s) Verified: Yes Verified Documents: Surgical Consent and History and Physical NPO Status Verified Time NPO: 00:00 Additional verifications Patient : No Anesthesia Reactions: No Hx Blood Transfusions: No Blood Transfusion Reaction: No Cephalosporin Allergy: No Previous Colonoscopy: Yes Airway Assessment Mallampati Score:: Class II C-Spine Mobility Assessed: Yes TMJ Mobility Assessed: Yes Dentition: Good Dentition Neurological Assessment Level of Consciousness: Awake, Alert, Appropriate and Follows Commands Hx Seizures: No Numbness or tingling in extremities: No Anesthesia Plan Anesthesia Risk discussed: Yes ASA Class: II Anesthesia Type: General
--- NOTE | 2024-08-17 08:30 | EXP.ANES.I ---
[facility] Anesthesia Record Part I Anesthesia Record I Intake, IV Amount: 500 Hydration: Adequate Estimated blood loss (mL): 0 Urine output (mL): 0 Blood Products used (#): none Blood Pressure: 148/90 SaO2: 97 Pulse Rate: 102 Airway Patency: Patent Respiratory Rate: 28 Temperature: 97.3 F Patient is:: Awake, Drowsy, Stable and Ventilator Stable to PACU at:: 08:12
[2024-08-17] MEDS: OXYCODONE 5MG W/APAP 325MG TABLET 1 EACH PO (08:50)
[2024-08-17] MEDS: ONDANSETRON 4MG/2ML VIAL 4 MG (08:50)
--- NOTE | 2024-08-17 08:50 | SUR.PHASEII ---
clinic pharmacy contacted @ this time. spoke w/ fuentes
--- NOTE | 2024-08-17 08:52 | EXP.OP.NOTE ---
Date of procedure: 08/17/24 Pre-op Diagnosis:: 1. Pelvic pain 2. History of endometrial Ablation 3. Thickened endometrial stripe 4. Abnormal uterine bleeding Post-op Diagnosis:: 1. Pelvic pain 2. History of endometrial Ablation 3. Thickened endometrial stripe 4. Abnormal uterine bleeding Procedure performed:: 1. Hysteroscopy, dilation, and and curettage 2. Pap smear Surgeon:: Lita Adair DO CYTOLOGY MANAGER:: James James Anesthesia: GETA Estimated blood loss (mL): 15 Operative findings:: Findings: -EUA revealed an 8-week anteverted uterus with regular contour. No significant prolapse or support defects noted. -Hysteroscopy was nonrevealing secondary to uterine adhesions, scarring, and stenosis. Operative note:: The patient was taken back to the OR where general anesthesia was obtained.? She was placed in the dorsal lithotomy position using yellow fin stirrups and sterilely prepped and draped in the usual fashion.? An in and out catheter was used to drain her bladder.? A timeout was performed.? A weighted speculum was used to visualize this cervix, a single-tooth tenaculum was applied to the anterior lip of the cervix. The cervix was only slightly dilated to allow entry to the ectocervix significant cervical stenosis and uterine scarring was noted. The lacrimal duct dilators were used. A an endometrial Pip[place], Endocell was used to obtain an endometrial sample. The cervix was attempted to progressively be dilated. Hysteroscope was assembled and hydrous dissection was used to attempt to visualize the endometrium. Secondary to significant scarring the endometrium was unable to be visualized in its entirety. Images were obtained. Hysteroscope was removed and a sharp curette was used to curette the outer ambriz of the lower uterine segment. All specimen was passed off the operative field to be sent to pathology for further evaluation. At the conclusion of the procedure there was a total of 5 mL for the fluid deficit. Pap smear was obtained. All instruments were removed from the vagina. The single-tooth tenaculum was removed and hemostasis was noted at the tenaculum sites.? All instruments were removed from the vagina.? All counts were correct, per nursing.? This concluded the procedure, the patient was awakened from anesthesia, and transferred to the PACU in stable condition. Condition: stable Disposition: same day Specimens:: Endometrial curettings and Pap smear Complications:: None
--- NOTE | 2024-08-17 15:04 | EXP.ANES.II ---
[facility] Anesthesia Record Part II Anesthesia Record Part II Discharge Time: 08:40 Destination: Surgical Day Care (OP Surgery) PACU nurse assessment reviewed?: Yes Patient Condition:: Good Anesthesia Complications:: None Swallowing reflex intact?: Yes Airway Patency: Patent Cyanosis?: No Blood Pressure: 157/78 SaO2: 98 Respiratory Rate: 16 Pulse Rate: 80 Temperature: 97.7 F Mental Status: Alert & Oriented Pain level:: 4 Nausea and/or vomitting:: None Intake, IV Amount: 0 Hydration: Adequate
== END 2024-08-17 09:34 | disposition home or self-care (01) ==
PROVIDERS: PCP Internal Medicine; Visit Provider Obstetrics & Gynecology
PROC: (CPT 58558; principal; 2024-08-17 07:30)
DX: R10.2 Pelvic and perineal pain (principal); R93.89 Abnormal findings on diagnostic imaging of other specified body structures; N93.9 Abnormal uterine and vaginal bleeding, unspecified
CPT/HCPCS: 58558; 81025; J1100; J2250; J2405; J3010

== ENCOUNTER 2024-10-03 11:45 | Outpatient (CLI) | payer BC, SELFPAY | END 2024-10-03 23:59 | disposition home or self-care (01) | LOC: LAB.DROPOF 10-04 15:00 | PROVIDERS: PCP Obstetrics & Gynecology; Visit Provider Obstetrics & Gynecology | DX: Z01.818 Encounter for other preprocedural examination (principal); N39.0 Urinary tract infection, site not specified; B96.20 Unspecified Escherichia coli [E. coli] as the cause of diseases classified elsewhere | CPT/HCPCS: 87086; 87088; 87186 ==

== ENCOUNTER 2024-10-10 12:40 | Outpatient (CLI) | payer BC, SELFPAY ==
[2024-10-10 13:58] LABS: Basophils % 0.7 % (0.1-2.0); Eosinophils # 0.1 K/mm3 (0.0-0.4); Eosinophils % 1.7 % (0.1-12.0); Hematocrit 38.6 % (37.0-47.0); Hemoglobin 12.8 g/dL (12.2-16.2); Lymphocytes # 1.5 K/mm3 (0.7-4.5); Lymphocytes % 26.9 % (10-50); Mean Corpuscular HGB Conc 33.2 g/dL (31.8-35.4); Mean Corpuscular Hemoglobin 31.4 pg (27.0-31.2); Mean Corpuscular Volume 94.8 fl (81-99); Mean Platelet Volume 9.9 fl (7.4-10.4); Monocytes # 0.4 K/mm3 (0.1-1.0); Monocytes % 6.6 % (1.7-9.3); Neutrophils # 3.7 K/mm3 (1.8-7.8); Neutrophils % 63.9 % (37.0-80.0); Platelet Count 232 K/mm3 (142-424); Red Blood Count 4.07 M/mm3 (4.20-5.40); White Blood Count 5.7 K/mm3 (4.8-10.8)
[2024-10-10 14:35] LABS: HCG,Quantitative < 2 mIU/ml (0-5.42)
[2024-10-10 14:37] LABS: Albumin Level 4.6 g/dl (3.5-5.0); Chloride 104 mmol/L (98-107); Potassium 3.8 mmoL/L (3.5-5.1); Sodium 138 mmol/L (136-145)
[2024-10-10 14:39] LABS: Blood Urea Nitrogen 14 mg/dl (7-17); Estimated Glomerular Filt Rate 65 ml/min (>60); GFR (African American) 79 ML/MIN (>60)
[2024-10-10 14:40] LABS: Alanine Aminotransferase 33 U/L (12-78); Albumin/Globulin Ratio 1.6 (1.1-1.8); Alkaline Phosphatase 70 U/L (38-126); Anion Gap 8.8 mEq/L (5-15); Aspartate Amino Transferase 35 U/L (14-36); Calcium 9.2 mg/dl (8.4-10.2); Carbon Dioxide 29 mmol/L (22.0-30.0); Globulin 2.8 g/dL (1.3-3.2); Glucose 143 mg/dl (74-100); Total Protein,Serum 7.4 g/dl (6.3-8.2)
[2024-10-10 14:59] LABS: Bilirubin,Total < 0.1 mg/dl (0.2-1.3)
== END 2024-10-10 23:59 | disposition home or self-care (01) ==
LOC: PREOP 12:40
PROVIDERS: PCP Internal Medicine; Visit Provider Obstetrics & Gynecology
DX: R10.2 Pelvic and perineal pain (principal); Z34.90 Encounter for supervision of normal pregnancy, unspecified, unspecified trimester; Z3A.00 Weeks of gestation of pregnancy not specified
CPT/HCPCS: 80053; 84702; 85025; 86850

== ENCOUNTER 2024-10-12 16:13 | Observation (INO) | payer BC, SELFPAY ==
[2024-10-10 13:23] VITALS: BMI 25.8
[2024-10-12] VITALS (20 sets, daily range): BP systolic 140–183; BP diastolic 64–89; PULSE 52–84; RESP 14–18; TEMP 36.5–36.7; O2SAT 91–100; BMI 26.5
[2024-10-12] MEDS: GABAPENTIN 300MG CAPSULE 600 MG (08:38)
[2024-10-12] MEDS: ACETAMINOPHEN 500MG TAB 1000 MG PO ×2 (08:38→17:01)
[2024-10-12] MEDS: CELECOXIB 100MG CAPSULE 400 MG PO (08:38)
--- NOTE | 2024-10-12 09:02 | EXP.ANES.CKL ---
[facility] Disclaimer: The information contained in this section may have been updated after the patient was seen, as this information can be updated by other users. Medical History Capsulitis of metatarsophalangeal (MTP) joints of both feet Surgical History History of discectomy S/P dilation and curettage History of hysteroscopy History of endometrial ablation History of foot surgery History of colonoscopy History of esophagogastroduodenoscopy (EGD) Family History Other Cancer Family history of COPD (chronic obstructive pulmonary disease) Family history of Churg-Geovanny syndrome Family history of diabetes mellitus Family history of heart disease Family history of hypertension Social History (Updated 10/12/24 @ 08:45 by Emely Osei RN) Smoking Status: Never smoker second hand exposure: No alcohol intake: never substance use type: denies use current occupational status: employed Travel in the last 8 weeks: None household members: spouse housing: house 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 current occupational exposures/hazards: Yes caffeine: Yes Have you lived/traveled outside US in past 30 days?: No Contact w/someone who lives/traveled outside US past 30 days?: No Exposure to someone with infectious disease in past 14 days?: No Do you have a fever (greater than 100.4 F or 38 C)?: No Have you tested positive for COVID-19: No Exposed to someone with COVID-19 in past 14 days?: No Do you have a sore throat?: No Do you have a cough?: No Do you have any weakness?: No Are you experiencing any nausea/vomitting?: No Do you have any diarrhea?: No Are you experiencing any unusual bleeding?: No Do you have any muscle aches/pain?: No Do you have any abdominal pain?: No Are you experiencing loss of taste or smell?: No [facility] Anesthesia Checklist Patient Identification Patient Identification: Arm Band Structural Data Admitted From: Home Planned Operative Procedure/s: LAVH, BSO, TVT Consent for Planned Operative Procedure(s) Verified: Yes Verified Documents: Surgical Consent and History and Physical NPO Status Verified Time NPO: 00:00 Additional verifications Anesthesia Reactions: No Hx Blood Transfusions: No Blood Transfusion Reaction: No Airway Assessment Mallampati Score:: Class II C-Spine Mobility Assessed: Yes TMJ Mobility Assessed: Yes Dentition: Good Dentition Neurological Assessment Level of Consciousness: Awake, Alert and Appropriate Anesthesia Plan Anesthesia Risk discussed: Yes Anesthesia Plan: Verified ASA Class: II Anesthesia Type: General
[2024-10-12] MEDS: METRONIDAZ/SOD CHL 500 MG/100 ML PIGGYBACK 100 MG IV ×2 (09:20→09:25)
[2024-10-12] MEDS: ROPIVACAINE 0.5% 30ML VIAL 300 MG ×2 (09:46→11:51)
[2024-10-12] MEDS: LIDOCAINE 1% W/EPI 1:100,000 20ML VIAL 20 ML ×2 (09:46→11:45)
[2024-10-12] MEDS: WATER FOR IRRIGATION,STERILE 3,000 ML 3000 ML IR (11:53)
--- NOTE | 2024-10-12 12:36 | P.PNANES_ITS ---
[facility] Anesthesia Record Part I Anesthesia Record I Intake, IV Amount: 1,450 Hydration: Adequate Estimated blood loss (mL): 150 Urine output (mL): 20 Blood Products used (#): none Blood Pressure: 143/88 SaO2: 95 Pulse Rate: 84 Airway Patency: Patent Respiratory Rate: 14 Temperature: 98.1 F Patient is:: Drowsy and Stable Stable to PACU at:: 12:27
[2024-10-12] MEDS: ESTRADIOL VALERATE 20 MG/ML VIAL IM (12:55)
--- NOTE | 2024-10-12 12:56 | EXP.OP.NOTE ---
Date of procedure: 10/12/24 Pre-op Diagnosis:: 1. Pelvic pain 2. Abnormal uterine bleeding 3. Stress urinary incontinence 3. History of endometrial ablation Post-op Diagnosis:: 1. Pelvic pain 2. Abnormal uterine bleeding 3. Stress urinary incontinence 3. History of endometrial ablation Procedure performed:: 1. Laparoscopic assisted vaginal hysterectomy 2. Bilateral salpingo-oophorectomy 3. Khalil culdoplasty 4. Retropubic tension-free mid urethral sling 5. Cystoscopy Surgeon:: Lita Adair DO Director Of Environmental Services(s):: Zac Sewell MD Anesthesia: GETA Estimated blood loss (mL): 100 Clinical Note:: Lata Brennan is a 54-year-old presenting today for surgical management of stress urinary incontinence. The patient was counseled on the risks, benefits, and alternatives to a mid-urethral sling, including but not limited to infection, urinary retention, mesh erosion, bleeding, injury to surrounding structures specifically including the bladder, urethra, and surrounding vasculature, voiding dysfunction, and unforeseen complications. Consent was preoperatively signed. Operative findings:: Uterine EUA was significant for 8wk size uterus with irregular borders at the fundus. No gross adnexal masses were appreciated. Laparoscopic exam revealed normal anatomy.? There was noted to be a fibroid uterus. No ovarian masses noted. No bowel injuries on entry. Cystoscopy revealed brisk flow from both ureters without any lesions or mesh noted. Operative note:: Medications: 2 g IV Ancef, 500 mg IV metronidazole. ERAS multimodal pain approach both preoperatively and post operatively. Pt was taken back to the OR where GETA was obtained without difficulty. SCDs were placed and found to be working. The patient was placed in dorsal lithotomy position using yellow fin stirrups. The vagina and abdomen was prepped and draped in the normal sterile fashion. An in and out catheter was used to drain the bladder and methylene blue was instilled. Weighted speculum was inserted into the vagina to visualize the cervix. A single tooth tenaculum was used to grasp the anterior lip of the cervix and an acorn uterine manipulator was placed. Top gloves were removed and attention was turned to the abdominal portion.? Local anesthetic with epinephrine was injected infraumbilically, an 11mm infraumbilical incision was made sharply. Direct entry into the abdominal cavity was obtained with laparoscopic visualization. A intraabdominal pressure of 6mmHg was observed and CO2 gas was insufflated to create a pneumoperitoneum to a pressure of 15mmHg. The patient was placed in Trendelenburg to facilitate moving the bowel out of the operative field. A second 11mm incision was made to the left, lateral to the rectus muscles with attention to avoid vasculature. Trocar introduced under direct visualization. This process was repeated on the right. Brief abdominal exam revealed normal anatomy as described above. The left fallopian tube was grasped at the fimbriated end. The ureters were visualized bilaterally and noted to be distal from the operative field. The LigaSure coagulation device was inserted and used to clamp, coagulate, and transect the infundibulopelvic ligament. At this time the Ovary was elevated and the ureter was again noted to be distal from the operative field. The mesosalpinx was followed to the round ligament and fulgurated with the LigaSure. There was a small omental adhesion at the left adnexa. This was taken down sharply at the peritoneum. Bowel was easily retracted away for better access to the adnexa. There was a small amount of bleeding which was made hemostatic with surgical clips. Ovary was removed and placed in the posterior cul-de-sac for retrieval later. This process was repeated on the contralateral side. The round and broad ligament were serially clamped, fulgurated and transected, with attention given to stay proximal to the uterine body. The anterior and posterior leaflet of the broad ligament were and the anterior broad ligament dissection was carried out to complete a bladder flap to the midline. The round and broad ligament were taken down the contralateral side. The bladder flap was connected in the middle with careful dissection. The bladder flap bilaterally was created sharply with minimal use of electrocautery to avoid bladder injury. The posterior leaflet of the broad ligament was taken down bilaterally and the uterine vessels were skeletonized. The uterines were coagulated multiple times and the uterus was noted to rani. The pedicles were reexamined and noted to be hemostatic. Attention was turned vaginally, a weighted speculum and [place] retractor were used to identify the cervix. Two Bain tenaculums were used to grasp the anterior and posterior lip of the cervix. 20mL of a solution made up of 0.5% lidocaine with epinephrine injected circumferentially around the cervix. Outward traction was applied to the cervix and a scalpel was used to make a circumferential colpotomy at the cervicovaginal junction. The incision was carried down to the paracervical fascia allowing the cervix to separate from the vaginal mucosa.? Pickups and Tijerina scissors were used to initiate and complete dissection into the posterior colpotomy. A long weighted Indu speculum was placed in the posterior colpotomy. The uterosacral ligaments were grasped with Z clamps, cut and suture ligated bilaterally. These were tagged to be incorporated into the vaginal cuff at a later time. Attention was turned to the anterior edge. Pickups and Metzenbaum scissors were used to initiate and complete dissection into the anterior colpotomy. A Dillon retractor was placed in the anterior colpotomy. A Arlene clamp was used to slide off the uterus, remaining proximal, clamp, cut and tied with 0 Vicryl the remaining attachments of the cardinal ligaments along with the lower branches of the uterine vessels were clamped, fulgurated, and transected bilaterally.? The uterus, fallopian tubes, and ovaries were noted to be free of any other adhesions and was removed. The pedicals were inspected bilaterally and there was a small amount of bleeding noted near the left uterosacral ligament. This was grasped with a Loyda and suture ligated to be made hemostatic. A moist lap sponge was placed vaginally to retract the bowel. The posterior peritoneum was fixed to the posterior vaginal cuff with a running locking stitch. 0-PDS was used to place a Khalil stitch for the culdoplasty, incorporating the bilateral uterosacral ligaments. The anterior peritoneum was grasped with an Yessica clamp and pursestringed closed. The vaginal cuff was then closed with 0 Vicryl in a running locking fashion. Khalil culdoplasty was tied to suspend the apex of the vagina. Hemostasis was noted. After changing gloves, the pneumoperitoneum was reestablished, laparoscope was placed and inspection of the cuff. Irrigation of the surgical site and suction reveal hemostasis, images obtained. The pressure was dropped down to 6 and there was a small amount of oozing noted where the omental adhesions were taken down at the left adnexa. This was made hemostatic with an additional surgical clip. There was oozing at the peritoneum from the right side of the cuff. This was made hemostatic with 3 surgical clips. An added layer of Surgicel powder was applied for hemostatic prophylaxis. Brief abdominal survey revealed a normal appearing liver and abdomen, except for previous described pelvic adhesions. Pedicals and cuff reinspected and noted to be hemostatic.? The abdominal incisions were closed with a deep single interrupted 0 Vicryl followed by a subcuticular 4-0 Monocryl and Dermabond was placed over the incision. Tension-free retropubic mid urethral sling: The suprapubic area was marked for the site of the future trocar passes, approximately 2 cm lateral to the midline. This area was hydrodistended with Neurontin 20 mL and each site. An Allis clamp was placed 1 cm proximal to the urethral meatus and another at the level of the urethrovesical junction along the midline. The mid-urethra was palpated. Local anesthetic with epinephrine was injected in the suburethral and bilaterally in the periurethral space. A vertical incision was then made in the vaginal epithelium at the level of the mid urethra. The vaginal epithelium was dissected off the underlying fascia with Metzenbaum scissors. Allis clamps were used for traction and Metzenbaum scissors were used to dissect the periurethral tunnel to the level of the inferior pubic ramus. This was repeated on the contralateral side. The bladder was confirmed to be empty. The rigid urethral catheter guide was placed in the bladder neck, deviating the bladder to the patient's left, with the trocar being passed on the patient's right. The [employer] advantage transvaginal tape trocar was placed in the previously dissected periurethral tunnel and passed retropubically, hugging the back of the pubic bone, and exiting through the suprapubic skin site. The vaginal epithelium was then inspected and no perforation was seen. Cornejo was removed and a cystoscopy performed. A full survey of the bladder was performed, demonstrating no evidence of trocar perforation, other injury, bleeding, or lesions. Brisk bilateral efflux of clear urine was visualized from the ureteral orifices. The urethra was intact without evidence of injury. The cystoscope was removed, and the bladder drained. Passage of the trocar was then repeated on the patient's left side, this time with the bladder deviated to the right with the rigid urethral catheter guide. The vaginal epithelium was inspected and no perforation was seen. The Cornejo was removed and a cystoscopy performed. A full survey of the bladder was performed again, demonstrating no evidence of trocar perforation, other injury, bleeding, or lesions. Brisk bilateral efflux of clear urine was visualized from the ureteral orifices. The urethra was intact without evidence of injury. The cystoscope was removed, and the bladder drained. The mesh was pulled to a tension free position in the mid urethra. An Allis was used to jacob 1 cm in the midline to ensure that the mesh was not too tight/restrictive. The plastic sheaths were removed. A repeat vaginal exam confirmed that there were no vaginal perforations with the mesh. Curved Tijerina scissors were used to ensure tension-free mesh placement in the midline, setting the sling in place. Excess mesh was removed suprapubically and these sites are closed with Dermabond. The suburethral incision was closed with 2-0 Vicryl running locking stich, taking care to not incorporate the mesh into the closure. Hemostasis was excellent. The counts were correct. The patient tolerated the procedure well. She was brought to the recovery room in stable condition. She will be discharged after meeting all discharge criteria to include voiding independently with a normal PVR. Condition: stable Disposition: floor Specimens:: Uterine body, cervix, bilateral fallopian tubes and ovaries Complications:: None
[2024-10-12] MEDS: HYDROMORPHONE 2MG/ML SYRINGE 0.5 MG IV ×4 (12:58→13:16)
[2024-10-12] MEDS: SODIUM CHLORIDE 0.9% 25ML BAG 25 ML IV (14:31)
[2024-10-12] MEDS: PROMETHAZINE HCL 25MG/ML 1ML VIAL 12.5 MG IV (14:33)
--- NOTE | 2024-10-12 14:34 | SUR.PHASEII ---
1410 assisted pt to the restroom. pt tolerated well. some blood noted [address] pan. she stated to keep patient and return her back to room. she will come back down and reassess her. 1415 pt assisted back to room where she became nauseous. new iv inserted in LAC. verbal order by medardo cooney to give phenergan. cold wash cloth applied. med given. pt tolerated well. 1430 pt states she is feeling better, reports mild, tolerable cramping 1435 bladder scan performed 68cc noted.
--- NOTE | 2024-10-12 15:34 | SUR.PHASEII ---
assisted pt to the restroom. pt tolerated well. 60cc urine output noted. scant sanguineous vaginal bleeding noted. pt reports cramps after returning back to bed.
--- NOTE | 2024-10-12 15:44 | SUR.PHASEII ---
bladder scanned pt after void 79ml noted.
--- NOTE | 2024-10-12 15:57 | SUR.OPER ---
dr pan at bedside
--- NOTE | 2024-10-12 16:06 | SUR.PHASEII ---
dr pan would like to admit pt. she is speaking with ob staff now. house aware of admission to either ob or med surg
--- NOTE | 2024-10-12 16:08 | SUR.PHASEII ---
called ob for room assignment. pt is going to room 279.
--- NOTE | 2024-10-12 16:09 | SUR.PHASEII ---
case management aware of admission
--- NOTE | 2024-10-12 16:13 | SUR.PHASEII ---
er admissions aware of admission. house aware as well
--- NOTE | 2024-10-12 16:24 | SUR.PHASEII ---
called report to siddhartha lopez
--- NOTE | 2024-10-12 16:40 | PC.NURSE ---
patient to room 279, oriented to room, POC discussed, patient verbalizes understanding, SCDS on, patient requesting kpad, VS obtained, will report to MD, c/o pain will medicate per MD order
[2024-10-12] MEDS: OXYCODONE 5MG IMMEDIATE RELEASE TABLET 5 MG PO (17:02)
--- NOTE | 2024-10-12 19:00 | PC.NURSE ---
patient resting comfortably at this time. report given to La SILVA
--- NOTE | 2024-10-12 19:26 | PC.NURSE ---
Report received from Leland Chapa RN.
[2024-10-12] MEDS: OXYCODONE 5MG IMMEDIATE RELEASE TABLET 10 MG PO (19:55)
[2024-10-12] MEDS: SENNOSIDES 8.6MG/DOCUSATE 50MG TABLET 1 TAB PO (19:55)
[2024-10-12] MEDS: [UNRECOGNIZED DRUG - OTHER] 100 EACH PO (20:29)
[2024-10-12] MEDS: LACTATED RINGERS 1000ML 1,000 ML 125 ML IV (20:38)
--- NOTE | 2024-10-12 23:03 | PC.NURSE ---
Pt sleeping soundly. No distress noted.
--- NOTE | 2024-10-12 23:27 | PC.NURSE ---
1999- Assessment complete. Scuds reapplied BLE. Pt continues to complain of severe lower abdominal pain. Describes pain similar to bladder spasms. Pt's blood pressure is elevated. See [facility] for Vital Signs and Medications. She denies ever having a hx of elevated blood pressure and relates it too her pain. Pt was able to void 100mls clear yellow urine. Bladder scan performed post void. Scan revealed 271mls of urine retention. 2010- Pt up to bathroom to void again. Additional 100mls clear yellow urine noted. Post void residual per bladder scanner was 214. Asked Kalyn () if she would come and verify scan results. 2026- Bladder scan performed per Kalyn ([facility]). Urine residual 232. 2037- notified of pt's elevated BPs, pain level / medications given and voids / post void results. V/U. Phone order received for Oxycodone 10mg Po q4 hrs prn, Reanchor maria cath overnight. LR at 75mls/hr. Give Toradol 30mg IV q6hrs starting at midnight and pt may have Dilaudid 1/2mg IV for breakthrough pain. Orders repeated and verified. 2104- Maria Cath inserted per sterile technique, tolerated well. Clear yellow urine noted in drainage bag. 2210- Pt sleeping soundly at this time. 2299- Pt remains asleep, BP 144/70 HR 56.
[2024-10-13] MEDS: KETOROLAC 30MG/ML VIAL 30 MG IV ×2 (00:40→05:27)
[2024-10-13] MEDS: ACETAMINOPHEN 500MG TAB 1000 MG PO ×2 (00:41→08:18)
[2024-10-13 01:00] VITALS: BP 133/60; PULSE 52
[2024-10-13 02:18] LABS: Appearance,Urine CLEAR (Clear); Bilirubin,Urine Negative (Negative); Blood, Urine SMALL (Negative); Color,Urine YELLOW (Yellow); Glucose,Urine (UA) Negative (Negative); Ketones,Urine Negative (Negative); Leukocyte Esterase,Urine Negative (Negative); Nitrate,Urine Negative (Negative); Protein,Urine Negative (Negative); Urobilinogen,Urine 0.2 EU/dl (0.2)
[2024-10-13 03:11] LABS: Bacteria,Urine Trace /lpf; Microscopic, Urine URINE MICROSCOPIC (MICROSCOPIC)
[2024-10-13 04:25] VITALS: BP 132/67; PULSE 57; RESP 18; TEMP 36.8; O2SAT 100
--- NOTE | 2024-10-13 04:30 | PC.NURSE ---
Pt has rested / slept well throughout the night. Reports much relief after insertion of maria cath. Still using heating pad to abdomen. Scuds remain in place BLE. LR infusing at 75ml /hr. 410ml IV intake, 590ml LTC. Lap sites to abdomen remain CDI, well approximated, no drainage, bleeding or bruising. No s/s of infection. BS (+) x all 4 quads. Reports passing gas and belching. Lungs clear bilat and throughout. VS wnl.
[2024-10-13] MEDS: ONDANSETRON 4MG/2ML VIAL 4 MG IV (05:28)
--- NOTE | 2024-10-13 05:37 | PC.NURSE ---
Pt rang call tobias stating that she was nauseated and about to vomit. Pt medicated with Zofran 4mg IV as well as scheduled Toradol. Pt also given saltine crackers and an alcohol pad to smell to help with symptoms. Instructed pt to call out if symptoms have not subsided shortly. V/U.
[2024-10-13 06:11] LABS: Basophils % 0.1 % (0.1-2.0); Eosinophils # 0.1 K/mm3 (0.0-0.4); Eosinophils % 0.7 % (0.1-12.0); Hematocrit 33.2 % (37.0-47.0); Hemoglobin 11.1 g/dL (12.2-16.2); Lymphocytes # 1.3 K/mm3 (0.7-4.5); Lymphocytes % 18.8 % (10-50); Mean Corpuscular HGB Conc 33.4 g/dL (31.8-35.4); Mean Corpuscular Hemoglobin 31.6 pg (27.0-31.2); Mean Corpuscular Volume 94.6 fl (81-99); Mean Platelet Volume 9.9 fl (7.4-10.4); Monocytes # 0.5 K/mm3 (0.1-1.0); Monocytes % 7.4 % (1.7-9.3); Neutrophils # 5.1 K/mm3 (1.8-7.8); Neutrophils % 72.7 % (37.0-80.0); Platelet Count 194 K/mm3 (142-424); Red Blood Count 3.51 M/mm3 (4.20-5.40)
--- NOTE | 2024-10-13 07:27 | PC.NURSE ---
Report given to SHIRA Pagan.
[2024-10-13] MEDS: NITROFURANTOIN 100MG CAPSULE 100 MG PO (08:18)
[2024-10-13] MEDS: OXYCODONE 5MG IMMEDIATE RELEASE TABLET 10 MG PO (08:19)
--- NOTE | 2024-10-13 08:26 | HMH.PHAINT1 ---
Pharmacy Intervention Comments: MEDICATION RECONCILIATION COMPLETED ON PATIENT USING EXTERNAL FILL HISTORY FROM PHARMACY. -PAUL BERRY, FARNAZD
[2024-10-13 08:42] VITALS: O2SAT 98
[2024-10-13 08:48] VITALS: BP 160/79; PULSE 60; RESP 17; TEMP 36.9; O2SAT 98
--- NOTE | 2024-10-13 10:29 | EXP.ANES.II ---
[facility] Anesthesia Record Part II Anesthesia Record Part II Discharge Time: 13:17 Destination: Surgical Day Care (OP Surgery) PACU nurse assessment reviewed?: Yes Patient Condition:: Good Anesthesia Complications:: None Swallowing reflex intact?: Yes Airway Patency: Patent Cyanosis?: No Blood Pressure: 166/85 SaO2: 95 Respiratory Rate: 16 Pulse Rate: 79 Temperature: 97.7 F Mental Status: Alert & Oriented Pain level:: 5 Nausea and/or vomitting:: None Intake, IV Amount: 0 Hydration: Adequate
[2024-10-13 10:30] VITALS: BP 166/85; PULSE 79; RESP 16; TEMP 36.5; O2SAT 95
--- NOTE | 2024-10-13 11:28 | PC.NURSE ---
1120 post void residual 75ml. reported to dr vargas. ordered to discharge home.
--- NOTE | 2024-10-13 12:10 | EXP.HPDC ---
General Admission date:: 10/12/24 Discharge date: 10/13/24 *Admission Date: 10/12/24 *Chief complaint: Hysterectomy *History of present illness: Lata Brennan had an LAVH, BSO, TVT and cystoscopy. Surgery was uncomplicated. Postoperatively she had a little bit of nausea and a slight increase in her pain. In addition to that she was having difficulty voiding. She also had some increased bleeding with her first void. Because of this she was admitted for observation overnight. [facility] Disclaimer: The information contained in this section may have been updated after the patient was seen, as this information can be updated by other users. Medical History Capsulitis of metatarsophalangeal (MTP) joints of both feet Surgical History History of discectomy S/P dilation and curettage History of hysteroscopy History of endometrial ablation History of foot surgery History of colonoscopy History of esophagogastroduodenoscopy (EGD) Family History Other Cancer Family history of COPD (chronic obstructive pulmonary disease) Family history of Churg-Geovanny syndrome Family history of diabetes mellitus Family history of heart disease Family history of hypertension Social History Smoking Status: Never smoker second hand exposure: No alcohol intake: never substance use type: denies use current occupational status: employed Travel in the last 8 weeks: None household members: spouse housing: house 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 current occupational exposures/hazards: Yes caffeine: Yes Have you lived/traveled outside [place] in past 30 days?: No Contact w/someone who lives/traveled outside US past 30 days?: No Exposure to someone with infectious disease in past 14 days?: No Do you have a fever (greater than 100.4 F or 38 C)?: No Have you tested positive for COVID-19: No Exposed to someone with COVID-19 in past 14 days?: No Do you have a sore throat?: No Do you have a cough?: No Do you have any weakness?: No Are you experiencing any nausea/vomitting?: No Do you have any diarrhea?: No Are you experiencing any unusual bleeding?: No Do you have any muscle aches/pain?: No Do you have any abdominal pain?: No Are you experiencing loss of taste or smell?: No Other Medical History Have you received the Flu Vaccine for this season: No Have you received the Pneumonia Vaccine: No Review of Systems Review of Systems Review of systems (narrative): Review of Systems Constitutional: Denies fever, chills, and sweats Respiratory: Denies cough and shortness of breath Cardiovascular: Denies chest pain and lightheadedness Gastrointestinal: dneies abdominal pain. Denies nausea, vomiting. tolerating PO Genitourinary: Denies dysuria and incontinence. Able to empty completely Musculoskeletal: Denies shoulder pain and back pain Neurological: Denies change in speech or headaches Exam Data for Last 24 hours Vital signs and Labs for Last 24 Hours: Temp Pulse Resp BP Pulse Ox O2 Del Method 98.5 F 60 16 160/79 H 98 Room Air 10/13/24 08:48 10/13/24 08:48 10/13/24 10:30 10/13/24 08:48 10/13/24 08:48 10/13/24 08:48 Laboratory Results - last 24 hr 10/12/24 21:00: Urine Color Yellow, Urine Appearance Clear, Urine pH 6.0, Ur Specific [place] 1.020, Urine Protein Negative, Urine Glucose (UA) Negative, Urine Ketones Negative, Urine Blood Small, Urine Nitrate Negative, Urine Bilirubin Negative, Urine Urobilinogen 0.2, Ur Leukocyte Esterase Negative, Urine RBC 10-20, Urine WBC 3-5, Ur Squamous Epith Cells 3-5, Urine Bacteria Trace 10/13/24 05:17: WBC 7.0, RBC 3.51 L, Hgb 11.1 L, Hct 33.2 L, MCV 94.6, MCH 31.6 H, MCHC 33.4, RDW 12.0, Plt Count 194, MPV 9.9, Neut % (Auto) 72.7, Lymph % (Auto) 18.8, [place] % (Auto) 7.4, Eos % (Auto) 0.7, Baso % (Auto) 0.1, Neut # (Auto) 5.1, Lymph # (Auto) 1.3, [place] # (Auto) 0.5, Eos # (Auto) 0.1, Baso # (Auto) 0.0 I & O for Last 24 hours: Intake & Output 10/10/24 10/11/24 10/12/24 10/13/24 23:59 23:59 23:59 23:59 Intake Total 1450 / 1450 410 / 410 Output Total 300 / 300 1600 / 1600 Balance 1150 / 1150 -1190 / -1190 Weight 170 lb 174 lb 6.4 oz *Routine HEENT Exam Head: Present normocephalic and atraumatic Eye: Present EOMI ENT: Present mucous membranes moist *Routine Respiratory Exam Respiratory: Present normal respiratory effort, able to speak in complete sentences and symmetric chest movement; Absent accessory muscle use or diminished air movement *Routine Cardiovascular Exam Cardiovascular: Present RRR *Routine Abdominal Exam Abdominal: Present soft and normoactive bowel sounds; Absent tenderness, distended, rebound or guarding *Routine Rectal Exam Rectal:: deferred *Routine Genitalia Exam Genitalia:: normal female Meds Home Medications and Allergies Home Medications ?Medication ?Instructions ?Recorded ?Confirmed ?Type nitrofurantoin 100 mg PO BID 7 days #14 caps 10/06/24 10/12/24 Rx monohydrate/macrocrystals 100 mg capsule (Macrobid) acetaminophen 500 mg tablet 500 mg PO Q6H PRN fever or pain 10/12/24 Rx #30 tabs ibuprofen 800 mg tablet 800 mg PO Q8H PRN pain #60 tabs 10/12/24 Rx oxycodone 5 mg tablet 5 mg PO Q8H PRN pain #20 tabs 10/12/24 Rx sennosides 8.6 mg tablet (Senna 8.6 mg PO BIDP PRN Constipation 10/12/24 Rx Lax) #60 tabs simethicone 125 mg tablet 125 mg PO DAILY PRN abdominal 10/12/24 Rx distention #60 tabs sertraline 100 mg tablet 150 mg PO DAILY 10/13/24 10/13/24 History tizanidine 4 mg tablet 2 - 4 mg PO Q8HP PRN Muscle 10/13/24 10/13/24 History Spasticity New Prescriptions to Start Prescriptions: acetaminophen Lita Adair ibuprofen Giovany,Lita oxycodone Lita Adair sennosides [Senna Lax] Lita Adair simethicone Lita Adair Allergies Allergy/AdvReac Type Severity Reaction Status Date / Time aspirin Allergy Unknown Verified 10/12/24 18:31 allergy reaction nickel Allergy Rash Verified 10/12/24 18:31 pseudoephedrine (From Allergy Unknown Verified 10/12/24 18:31 DayQuil Sinus Pressure/Pain) allergy reaction Hospital Course Hospital Course Hospital Course: Lata is a 54-year-old who is postop day #1 from an LAVH, BSO, TVT, and cystoscopy. Overnight she voided 100 mL at 8pm and had a postvoid residual of 214 mL. Decision was made to anchor a Cornejo at 2100. Cornejo was removed at 830 this morning. this morning she completed a voiding trial prior to lunch and had a postvoid residual of 75. [place] like she could empty her bladder completely. Her pain is well controlled. She has not had any additional bleeding overnight. She had toast and oatmeal for breakfast and is doing well. Desires discharge. routine DC instructions reviewed Results Data Completed and Pending Labs on day of discharge: Labs from last 24 hours 10/13/24 10/12/24 05:17 21:00 WBC 7.0 RBC 3.51 L Hgb 11.1 L Hct 33.2 L MCV 94.6 MCH 31.6 H MCHC 33.4 RDW 12.0 Plt Count 194 MPV 9.9 Neut % (Auto) 72.7 Lymph % (Auto) 18.8 [place] % (Auto) 7.4 Eos % (Auto) 0.7 Baso % (Auto) 0.1 Neut # (Auto) 5.1 Lymph # (Auto) 1.3 [place] # (Auto) 0.5 Eos # (Auto) 0.1 Baso # (Auto) 0.0 Urine Color Yellow Urine Appearance Clear Urine pH 6.0 Ur Specific [place] 1.020 Urine Protein Negative Urine Glucose (UA) Negative Urine Ketones Negative Urine Blood Small Urine Nitrate Negative Urine Bilirubin Negative Urine Urobilinogen 0.2 Ur Leukocyte Esterase Negative Urine RBC 10-20 Urine WBC 3-5 Ur Squamous Epith Cells 3-5 Urine Bacteria Trace Discharge Plan Disposition Patient Disposition: Home, Self-Care Follow up Plan Follow up with: Lita Adair DO [Staff Physician] - 10/26/24 2:15 pm Prescriptions/Medication Reconciliation: New sennosides [Senna Lax] 8.6 mg Tablet 8.6 mg PO BIDP PRN (Reason: Constipation) Qty: 60 2RF ibuprofen 800 mg tablet 800 mg PO Q8H PRN (Reason: pain) Qty: 60 2RF acetaminophen 500 mg tablet 500 mg PO Q6H PRN (Reason: fever or pain) Qty: 30 3RF simethicone 125 mg tablet 125 mg PO DAILY PRN (Reason: abdominal distention) Qty: 60 2RF oxycodone 5 mg tablet 5 mg PO Q8H PRN (Reason: pain) Qty: 20 0RF Continued nitrofurantoin monohyd/m-cryst [Macrobid] 100 mg capsule 100 mg PO BID 7 Days Qty: 14 0RF Rx Instructions: LAST DOSE 02/12/25 must administer with a meal/food tizanidine 4 mg tablet 2 - 4 mg PO Q8HP PRN (Reason: Muscle Spasticity) Patient Comments: TAKE 1/2 TO 1 (ONE-HALF TO ONE) TABLET BY MOUTH EVERY 8 HOURS NEEDED FOR MUSCLE SPASM sertraline 100 mg tablet 150 mg PO DAILY Patient Comments: TAKE 1 & 1/2 (ONE & ONE-HALF) TABLETS BY MOUTH ONCE DAILY Problem Reconciliation Problems Reviewed?: Yes Patient Discharge Instructions ACTIVITY: Continue current activity DIET: regular diet Additional Instructions: Post op plan You had a laparoscopic assisted vaginal hysterectomy, bilateral salpingo-oophorectomy, retropubic mid urethral sling, and cystoscopy. This means I removed your uterus, cervix, and both tubes and ovaries. I placed a sling around your urethra to help with urinary incontinence. I also used a camera to look in your bladder after the surgery and there were no problems with your bladder wall or ureters. The top of your vagina is closed with dissolvable sutures. At your 6-week postop appointment you will have a pelvic exam to ensure your cuff is healing well. You had a Retropubic mid urethral tension-free sling also known as a TVT. This was performed for stress urinary incontinence and should improve leakage of urine with cough laugh and sneeze he will follow-up in 2 weeks. Please remain on pelvic rest for 6 weeks and with lifting restrictions for 6 weeks Activity: - No lifting more than 10 lbs for 6 weeks. - No driving while you are taking narcotic pain medication. - You have 2 incisions on your mons pubis that are closed with surgical glue. The glue should come off within 2 weeks. You can scrub gently in the shower - You have 3 incisions on your abdomen that are closed with stitches and surgical glue. The glue should come off within 2 weeks. You can scrub gently in the shower - The vaginal mucosa has an incision that is closed with stitches. - You may have a little bit of bleeding with urination for the next 1 to 2 days or bladder spasms. Please let me know if these are persistent as you will be at an increased risk for urinary tract infection Wound care - You have surgical glue covering your incision. This will come off on its own within 1-2 weeks - You have stitches in your vagina which will dissolve over the next 4-6 weeks as your body heals - Keep your wound clean and dry, ok to wash with soap and water but pat thoroughly dry. - Important to shower every day to decrease your risk of infection Medications: - Ibuprofen (a nonsteroidal anti-inflammatory) for pain. Please take the ibuprofen scheduled for the first 2-3 days as this will help control your pain. Ibuprofen dosing should not exceed 800 mg every 8 hours - Acetaminophen (Tylenol) for discomfort. Please take Tylenol scheduled for the first 2 to 3 days. Tylenol dosing should not exceed 1000 mg every 6 hours. Please do not consume more than 4000 mg in a 24-hour. - Oxycodone (a narcotic pain medication) use the narcotic pain medication for breakthrough or severe pain. You will want to stop the narcotic pain medication first. Narcotic pain medication can be habit forming so please only use this medication if you need it. This pain medication is also associated with constipation please remember to increase your fiber intake, and water intake. I have also given you a stool softener. You should not take more than 1-2 5 mg tablets every 6 hours for pain that rates greater than 6. - Senna (a stool softener) use this medication for constipation as needed. Narcotics can increase your risk for constipation - Simethicone: a gas medication for bloating and gas pain you may experience in the next 1-2 weeks. Please call the office or return to the ER if you have any of the followin. bleeding more than 1 pad an hour for 2 hours 2. pain that does not respond to your narcotic pain medication 3. dizziness or lightheadedness such that you lose consciousness 4. abnormal discharge that looks like pus from your incisions Questions or concerns: It is my privilege to be your doctor. Please let me know if you have other questions or concerns. Lita Adair DO [facility] Specialist [place], [place] [address] Patient Instructions: Hysterectomy -- Laparoscopic Surgery Print Language: Surinamese Providers Primary Care Provider: Ramiro Calix Admit Provider: Lita Adair Attending Provider: Lita Adair
--- NOTE | 2024-10-13 12:59 | PC.NURSE ---
1258 Discharge education provided to pt, questions encouraged and answered.
== END 2024-10-13 13:01 | disposition home or self-care (01) ==
LOC: OB 16:13
PROVIDERS: Nurse Practitioner Obstetrics & Gynecology; Admitting Provider Obstetrics & Gynecology; PCP Internal Medicine; Visit Provider Obstetrics & Gynecology
PROC: 0UT9FZZ Resection of Uterus, Via Natural or Artificial Opening With Percutaneous Endoscopic Assistance (ICD-10-PCS; CPT 51990; principal; 2024-10-12 09:45)
DX: N39.3 Stress incontinence (female) (male) (principal); N93.8 Other specified abnormal uterine and vaginal bleeding; N94.6 Dysmenorrhea, unspecified; N95.1 Menopausal and female climacteric states; R10.2 Pelvic and perineal pain; N99.85 Post endometrial ablation syndrome; Z88.6 Allergy status to analgesic agent; Z88.8 Allergy status to other drugs, medicaments and biological substances; Z79.899 Other long term (current) drug therapy; Z82.69 Family history of other diseases of the musculoskeletal system and connective tissue; Z83.3 Family history of diabetes mellitus; Z83.6 Family history of other diseases of the respiratory system; Z82.49 Family history of ischemic heart disease and other diseases of the circulatory system; N32.81 Overactive bladder
CPT/HCPCS: 51990; 52000; 57268; 58552; 36415; 81001; 85025; 96374; J3490; C1771; G0378; J1100; J1171; J1380; J1885; J2250; J2405; J2550; J3010; J7120

== ENCOUNTER 2025-03-10 09:43 | Emergency (ER) | payer BC, SELFPAY ==
[2025-03-10] VITALS (41 sets, daily range): BP systolic 129–247; BP diastolic 62–129; PULSE 48–80; RESP 9–21; TEMP 37–37.2; O2SAT 95–100; BMI 25.0
--- NOTE | 2025-03-10 09:54 | ECG_ITS ---
APPROVED REPORT Exam: Resting ECG HR:66 bpm ECG Measurements Heart Rate 66 AXES ID 131 P 72 QRSd 90 QRS 84 QT 392 T 59 QTc 405 Conclusion Normal sinus rhythm Normal intervals No ST elevation Electronically signed by : Joshua Malone, 03/10/2025 15:41:23
--- NOTE | 2025-03-10 09:56 | HMH.EDGENADL ---
Discharge Plan Disposition Patient Disposition: Xfer Other Condition: Fair Referrals Follow up/Referrals: Ramiro Calix MD [Primary Care Provider, Medical] - See instructions Clinical Impressions Clinical Impression: Cavernous sinus thrombosis, Acute intractable headache Print Language Print Language: Malawian Discharge ED Provider: Joshua Malone General Adult HPI General Chief complaint: Recheck/Abnormal Lab/Rx Stated complaint: high b/p Time Seen by Provider: 03/10/25 09:48 History of Present Illness HPI narrative: This is a 54-year-old female patient, with past medical history of migraine headaches on no current daily medications, who is presenting to the emergency department today for evaluation of a severe tractable headache. She states that she woke up this morning and was experiencing hypertension and shortly after this began experiencing significant headaches. She tells me that her headache is worse with lying flat. After arrival to the emergency department her headache severely worsened and she began experiencing nausea and vomiting during this period of exacerbation. She has not had any vision changes. No recent surgeries. She is not on any daily medications including control. She has reported some recent ear pain and discomfort on the left. No fevers or chills. Notably, she states that her headache is radiating down into the right side of her neck. She reports no recent chiropractic manipulations. Related Data Allergies Allergy/AdvReac Type Severity Reaction Status Date / Time aspirin Allergy Unknown Verified 03/09/25 09:20 allergy reaction nickel Allergy Rash Verified 03/09/25 09:20 pseudoephedrine (From Allergy Unknown Verified 03/09/25 09:20 DayQuil Sinus Pressure/Pain) allergy reaction PFSH [facility] Disclaimer: The information contained in this section may have been updated after the patient was seen, as this information can be updated by other users. Medical History Capsulitis of metatarsophalangeal (MTP) joints of both feet Surgical History H/O bilateral salpingo-oophorectomy History of LAVH History of discectomy S/P dilation and curettage History of hysteroscopy History of endometrial ablation History of foot surgery History of colonoscopy History of esophagogastroduodenoscopy (EGD) Family History Other Cancer Family history of COPD (chronic obstructive pulmonary disease) Family history of Churg-Geovanny syndrome Family history of diabetes mellitus Family history of heart disease Family history of hypertension Social History Smoking Status: Current every day smoker second hand exposure: No alcohol intake: never substance use type: denies use current occupational status: employed Travel in the last 8 weeks?: None household members: spouse housing: house 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 current occupational exposures/hazards: Yes caffeine: Yes Have you lived/traveled outside US in past 30 days?: No Contact w/someone who lives/traveled outside US past 30 days?: No Exposure to someone with infectious disease in past 14 days?: No Do you have a fever (greater than 100.4 F or 38 C)?: No Have you tested positive for COVID-19?: No Exposed to someone with COVID-19 in past 14 days?: No Do you have a sore throat?: No Do you have a cough?: No Do you have any weakness?: No Do you have any diarrhea?: No Are you experiencing any unusual bleeding?: No Do you have any muscle aches/pain?: No Do you have any abdominal pain?: No Are you experiencing loss of taste or smell?: No Other Medical History Have you received the Flu Vaccine for this season: No Have you received the Pneumonia Vaccine: No ROS Obtained: Yes Systems reviewed as appropriate & no additional complaints except as documented Physical Exam General General appearance: other (See MDM) Respiratory Respiratory exam: Present other (See MDM) Cardiovascular Cardiovascular exam: Present other (See MDM) Neurological Exam Neurological exam: Present other (See MDM) Medical Decision Making Medical Records Medical records reviewed: Yes I reviewed the patient's medical records. Screening: Per USPSTF and CDC recommendations, given the prevalence of disease in our region, it is our hospital?s policy to screen for HIV and viral Hepatitis for all patients aged 18 and over and those with ongoing risk factors. [place] Inquiry Pt receiving controlled substance: No [place] was queried for this patient: No Vital Signs: 03/10/25 10:01 03/10/25 10:03 03/10/25 10:11 Temperature 98.9 F Temperature Source Oral Pulse Rate 67 58 L Pulse Rate [Right] 68 Respiratory Rate 11 L 10 L Blood Pressure 193/88 H 185/79 H Blood Pressure [Left Arm] 247/129 H Blood Pressure [Right Arm] 221/119 H Blood Pressure Mean Blood Pressure Mean [Left Arm] 168 Blood Pressure Mean [Right Arm] 153 Blood Pressure Source [Left Arm] Automatic Cuff Blood Pressure Source [Right Arm] Automatic Cuff Blood Pressure Position [Left Arm] Supine Blood Pressure Position [Right Arm] Supine 02 Sat by Pulse Oximetry 100 100 100 Oxygen Delivery Method Room Air 03/10/25 10:15 03/10/25 10:16 03/10/25 10:21 Temperature 98.9 F Temperature Source Oral Pulse Rate 52 L 71 Pulse Rate [Right] 68 Respiratory Rate 9 L 11 L 13 Blood Pressure 176/80 H 167/85 H Blood Pressure [Left Arm] 247/129 H Blood Pressure [Right Arm] 221/119 H Blood Pressure Mean Blood Pressure Mean [Left Arm] 168 Blood Pressure Mean [Right Arm] 153 Blood Pressure Source [Left Arm] Automatic Cuff Blood Pressure Source [Right Arm] Automatic Cuff Blood Pressure Position [Left Arm] Supine Blood Pressure Position [Right Arm] Supine 02 Sat by Pulse Oximetry 100 100 100 Oxygen Delivery Method Room Air 03/10/25 10:31 03/10/25 10:40 03/10/25 10:50 Temperature Temperature Source Pulse Rate 57 L 57 L 61 Pulse Rate [Right] Respiratory Rate 16 11 L 18 Blood Pressure 139/65 136/69 141/71 H Blood Pressure [Left Arm] Blood Pressure [Right Arm] Blood Pressure Mean Blood Pressure Mean [Left Arm] Blood Pressure Mean [Right Arm] Blood Pressure Source [Left Arm] Blood Pressure Source [Right Arm] Blood Pressure Position [Left Arm] Blood Pressure Position [Right Arm] 02 Sat by Pulse Oximetry 98 97 100 Oxygen Delivery Method 03/10/25 11:00 03/10/25 11:10 03/10/25 11:21 Temperature Temperature Source Pulse Rate 58 L 68 66 Pulse Rate [Right] Respiratory Rate 14 13 14 Blood Pressure 135/62 131/64 149/63 H Blood Pressure [Left Arm] Blood Pressure [Right Arm] Blood Pressure Mean Blood Pressure Mean [Left Arm] Blood Pressure Mean [Right Arm] Blood Pressure Source [Left Arm] Blood Pressure Source [Right Arm] Blood Pressure Position [Left Arm] Blood Pressure Position [Right Arm] 02 Sat by Pulse Oximetry 100 97 99 Oxygen Delivery Method 03/10/25 11:30 03/10/25 11:40 03/10/25 11:50 Temperature Temperature Source Pulse Rate 61 62 61 Pulse Rate [Right] Respiratory Rate 13 15 17 Blood Pressure 135/68 129/64 129/64 Blood Pressure [Left Arm] Blood Pressure [Right Arm] Blood Pressure Mean Blood Pressure Mean [Left Arm] Blood Pressure Mean [Right Arm] Blood Pressure Source [Left Arm] Blood Pressure Source [Right Arm] Blood Pressure Position [Left Arm] Blood Pressure Position [Right Arm] 02 Sat by Pulse Oximetry 100 100 98 Oxygen Delivery Method 03/10/25 12:00 03/10/25 12:00 03/10/25 12:10 Temperature Temperature Source Pulse Rate 70 58 L 61 Pulse Rate [Right] Respiratory Rate 17 18 Blood Pressure 134/70 134/70 140/71 Blood Pressure [Left Arm] Blood Pressure [Right Arm] Blood Pressure Mean 84 Blood Pressure Mean [Left Arm] Blood Pressure Mean [Right Arm] Blood Pressure Source [Left Arm] Blood Pressure Source [Right Arm] Blood Pressure Position [Left Arm] Blood Pressure Position [Right Arm] 02 Sat by Pulse Oximetry 98 99 98 Oxygen Delivery Method 03/10/25 12:21 03/10/25 12:30 03/10/25 12:51 Temperature Temperature Source Pulse Rate 60 59 L 62 Pulse Rate [Right] Respiratory Rate 12 10 L 10 L Blood Pressure 152/72 H 176/83 H Blood Pressure [Left Arm] Blood Pressure [Right Arm] Blood Pressure Mean Blood Pressure Mean [Left Arm] Blood Pressure Mean [Right Arm] Blood Pressure Source [Left Arm] Blood Pressure Source [Right Arm] Blood Pressure Position [Left Arm] Blood Pressure Position [Right Arm] 02 Sat by Pulse Oximetry 100 100 100 Oxygen Delivery Method 03/10/25 13:00 Temperature Temperature Source Pulse Rate 80 Pulse Rate [Right] Respiratory Rate 13 Blood Pressure 209/114 H Blood Pressure [Left Arm] Blood Pressure [Right Arm] Blood Pressure Mean Blood Pressure Mean [Left Arm] Blood Pressure Mean [Right Arm] Blood Pressure Source [Left Arm] Blood Pressure Source [Right Arm] Blood Pressure Position [Left Arm] Blood Pressure Position [Right Arm] 02 Sat by Pulse Oximetry 100 Oxygen Delivery Method Lab Data Lab Results 03/10/25 10:01: WBC 5.2, RBC 4.53, Hgb 14.3, Hct 42.7, MCV 94.3, MCH 31.6 H, MCHC 33.5, RDW 12.3, Plt Count 266, MPV 9.6, Neut % (Auto) 54.0, Lymph % (Auto) 35.4, [place] % (Auto) 7.9, Eos % (Auto) 1.9, Baso % (Auto) 0.6, Neut # (Auto) 2.8, Lymph # (Auto) 1.9, [place] # (Auto) 0.4, Eos # (Auto) 0.1, Baso # (Auto) 0.0, Sodium 140, Potassium 4.1, Chloride 106, Carbon Dioxide 29, Anion Gap 9.1, BUN 19 H, Creatinine 0.70, Estimated Creat Clear 107, Estimated GFR 87, Est GFR ( Amer) 105, Glucose 108 H, Calcium 9.7, Magnesium 2.1, Total Bilirubin 0.7, AST 34, ALT 31, Alkaline Phosphatase 94, Troponin I < 0.01, Total Protein 8.7 H, Albumin 4.8, Globulin 3.9 H, Albumin/Globulin Ratio 1.2, HCV Ab MELISSA w/Rflx PCR Qn Negative, HIV Ag/Ab Combo Qual Negative 03/10/25 10:01 03/10/25 10:01 Orders (Tests/Meds): ED MEDICATIONS Generic Name Dose Route Start Last Admin Trade Name Freq PRN Reason Stop Dose Admin Sodium Chloride 10 ml 03/10/25 11:17 03/10/25 11:17 Sodium Chloride 0.9% 10ml Syr (Rad Only) IV 04/09/25 11:16 10 ml NEEDED PRN Administration Maintain IV Site Discontinued Medications Generic Name Dose Route Start Last Admin Trade Name Freq PRN Reason Stop Dose Admin Acetaminophen 500 mg 03/10/25 10:03 03/10/25 10:10 Acetaminophen 500mg Tab PO 03/10/25 10:04 500 mg ONCE ONE Administration Diphenhydramine HCl 25 mg 03/10/25 10:03 03/10/25 10:10 Diphenhydramine 50mg/Ml Vial IV 03/10/25 10:04 25 mg ONCE ONE Administration Lactated Ringer's 1,000 mls @ 999 mls/hr 03/10/25 10:03 03/10/25 10:10 Lactated Ringer's 1000 Ml Bag IV 03/10/25 11:03 999 mls/hr .Q1H1M ONE Administration Magnesium Sulfate 2 gm in 50 mls @ 50 mls/hr 03/10/25 10:03 03/10/25 10:10 Magnesium Sulfate 2gm/50ml Premix IV 03/10/25 11:02 50 mls/hr ONCE ONE Administration Iopamidol 80 ml 03/10/25 11:17 03/10/25 11:17 Iopamidol-370 (76%);100ml Bottle IV 03/10/25 11:18 80 ml ONCE ONE Administration Ketorolac Tromethamine 15 mg 03/10/25 10:03 03/10/25 10:10 Ketorolac 30mg/Ml Vial IV 03/10/25 10:04 15 mg ONCE ONE Administration Prochlorperazine Edisylate 10 mg 03/10/25 10:03 03/10/25 10:10 Prochlorperazine 10mg/2ml Vial IV 03/10/25 10:04 10 mg ONCE ONE Administration Sodium Chloride 50 ml 03/10/25 11:17 03/10/25 11:17 0.9 % Sodium Chloride 50 Ml Vial IV 03/10/25 11:18 50 ml ONCE ONE Administration ORDERS Category Date Time Status CT angio head Stat Cat Scan 03/10/25 10:[address] angio neck Stat Cat Scan 03/10/25 10:[address] head/brain wo con Stat Cat Scan 03/10/25 10:03 Completed CBC w/Auto Diff [Complete Blood Count Auto Diff] Stat Lab 03/10/25 10:01 Completed CMP [Comprehensive Metabolic Panel] Stat Lab 03/10/25 10:01 Completed HIV Combo Stat Lab 03/10/25 10:01 Completed Hepatitis C Ab Qual. W/ RFX Stat Lab 03/10/25 10:01 Completed Magnesium Stat Lab 03/10/25 10:01 Completed Troponin I Q3H Lab 03/10/25 13:15 Ordered Troponin I Q3H Lab 03/10/25 16:15 Ordered Troponin I Stat Lab 03/10/25 10:01 Completed ECG Data Tracing #1: I reviewed this ECG and interpreted as documented below: EKG personally interpreted by me demonstrates normal sinus rhythm with a rate of 66 bpm, normal axis, no NE prolongation, narrow QRS, no QTc prolongation. No ST elevation or depression. No overt signs of ischemia or arrhythmia Medical Decision Narrative: In summary, this is a 54-year-old female patient who is presenting to the emergency department today for evaluation of hypertension as well as headaches that are worse with lying flat and associated with nausea and vomiting during periods of exacerbation. She does not have any significant medical comorbidities that would complicate her medical management or care. On initial evaluation of the patient she initially appeared to be resting comfortably, but during our conversation she laid flat and when she did she began experiencing severe worsening of her headache which then provokes nausea and vomiting. On my examination she has 5 out of 5 strength in her bilateral upper and lower extremities. No evidence of nuchal rigidity. Her pupils are equal round and reactive to light. She has no abnormal cerebellar signs. On examination of her ears she has no TM bulging or erythema. She has no proptosis of the mastoids. No postauricular erythema or edema. Initial interventions included a migraine cocktail consisting of 15 mg of Toradol, 500 mg of Tylenol, 2 g of magnesium sulfate, 10 mg of Compazine, and 25 mg of Benadryl. We also ministered 1 L of lactated Ringer's. Differential diagnosis to include intracranial hemorrhage, intracranial mass, cervical artery dissection, aneurysm rupture, migraine headache, among others. Labs were personally interpreted by me and demonstrate no actionable abnormalities. We did proceed with a CT head without contrast as well as a CTA of the head and neck given that she was telling me that her pain was radiating into her neck. The CT scans were interpreted by radiology and demonstrated findings of bilateral mastoids air cell opacification consistent with mastoiditis as well as venous congestion within the cavernous sinus concerning for a cavernous sinus thrombosis. Based on these findings I had an interactive discussion with our radiologist who stated that there was a slight delay on our contrast bolus timing that allowed her to visualize some of the venous sinuses in the brain. Based on this delay she is unable to confidently say whether there is a venous thrombus present. She states that she would still recommend an MRI of the brain even if we had a CT venogram showing no venous sinus thrombus based on the findings she is seeing on CT currently. We do not have MRI capabilities here at our hospital. Therefore I have reached out to the [facility] and spoke with Dr. Mendoza who has agreed to accept the patient for transfer to their hospital for further workup and evaluation of her mastoid air cell opacification and possible cavernous sinus thrombus. Critical Care Critical Care Time Critical Care Time: No
--- NOTE | 2025-03-10 10:03 | CT_ITS ---
PROCEDURE INFORMATION: Exam: CT Head Without Contrast Exam date and time: 03/10/2025 11:16 AM Age: 54 years old Clinical indication: Pain; Headache; Additional info: Right sided headache TECHNIQUE: Imaging protocol: Computed tomography of the head without contrast. Radiation optimization: All CT scans at this facility use at least one of these dose optimization techniques: automated exposure control; mA and/or kV adjustment per patient size (includes targeted exams where dose is matched to clinical indication); or iterative reconstruction. COMPARISON: No relevant prior studies available. FINDINGS: Brain: Normal. No hemorrhage. Unremarkable white matter. No mass effect. Cerebral ventricles: No ventriculomegaly. Paranasal sinuses: Mucosal thickening left maxillary sinus. Mastoid air cells: Partial opacification mastoid air cells bilaterally, left worse than right. Nonspecific mastoiditis. Bones: Unremarkable. No acute fracture. Soft tissues: Unremarkable. Other findings: Streak artifact from bilateral hearing aids limits examination. IMPRESSION: 1. Partial opacification mastoid air cells bilaterally, left worse than right. Nonspecific mastoiditis. 2. Streak artifact from bilateral hearing aids limits examination.
--- NOTE | 2025-03-10 10:03 | CT_ITS ---
PROCEDURE INFORMATION: Exam: CTA Neck With Contrast Exam date and time: 03/10/2025 11:18 AM Age: 54 years old Clinical indication: Pain; Headache; Additional info: Headache, pain radiating into right neck TECHNIQUE: Imaging protocol: Computed tomographic angiography of the neck with contrast. Exam focused on the cervical segments of the vasculature. 3D rendering (Not supervised by radiologist): MIP and/or 3D reconstructed images were created by the technologist. Radiation optimization: All CT scans at this facility use at least one of these dose optimization techniques: automated exposure control; mA and/or kV adjustment per patient size (includes targeted exams where dose is matched to clinical indication); or iterative reconstruction. Contrast material: ISOVUE 370; Contrast volume: 80 ml; Contrast route: INTRAVENOUS (IV); COMPARISON: CT HEAD/BRAIN WO CON 03/10/2025 11:16 AM FINDINGS: Right common carotid artery: No stenosis. No dissection or occlusion. Right internal carotid artery: No stenosis of the extracranial segment. No dissection or occlusion. Right external carotid artery: No occlusion or stenosis of the origin. Left common carotid artery: No stenosis. No dissection or occlusion. Left internal carotid artery: No stenosis of the extracranial segment. No dissection or occlusion. Left external carotid artery: No occlusion or stenosis of the origin. Right vertebral artery: No stenosis. No dissection or occlusion. Left vertebral artery: Dominant. No stenosis. No dissection or occlusion. Mastoid air cells: Partial opacification mastoid air cells, left worse than right. Soft tissues: Normal. No significant soft tissue swelling. Bones/joints: No acute fracture. IMPRESSION: 1. Partial opacification mastoid air cells, left worse than right. 2. No significant stenosis or occlusion. REFERENCES: NASCET CRITERIA. The degree of stenosis in the cervical segment of the internal carotid artery is based on NASCET criteria. Normal is no stenosis. Mild is less than 50% stenosis. Moderate is 50-69% stenosis. Severe is 70% to 99% stenosis. Total occlusion is no detectable patent lumen.
--- NOTE | 2025-03-10 10:03 | CT_ITS ---
PROCEDURE INFORMATION: Exam: CTA Head With Contrast, Arteriography Exam date and time: 03/10/2025 11:18 AM Age: 54 years old Clinical indication: Other: Headache radiating into right neck TECHNIQUE: Imaging protocol: Computed tomographic angiography of the head with contrast. Exam focused on the arteries. 3D rendering (Not supervised by radiologist): MIP and/or 3D reconstructed images were created by the technologist. Radiation optimization: All CT scans at this facility use at least one of these dose optimization techniques: automated exposure control; mA and/or kV adjustment per patient size (includes targeted exams where dose is matched to clinical indication); or iterative reconstruction. Contrast material: ISO 370; Contrast volume: 80 ml; Contrast route: INTRAVENOUS (IV); COMPARISON: CT HEAD/BRAIN WO CON 03/10/2025 11:16 AM FINDINGS: ANTERIOR CIRCULATION: Right internal carotid artery: Intracranial segment is patent with no significant stenosis. No aneurysm. Right middle cerebral artery: No occlusion or significant stenosis. No aneurysm. Right anterior cerebral artery: No occlusion or significant stenosis. No aneurysm. Left internal carotid artery: Intracranial segment is patent with no significant stenosis. No aneurysm. Left middle cerebral artery: No occlusion or significant stenosis. No aneurysm. Left anterior cerebral artery: No occlusion or significant stenosis. No aneurysm. POSTERIOR CIRCULATION: Right vertebral artery: No occlusion or significant stenosis. No aneurysm. Left vertebral artery: No occlusion or significant stenosis. No aneurysm. Basilar artery: No occlusion or significant stenosis. No aneurysm. Right posterior cerebral artery: No occlusion or significant stenosis. No aneurysm. Left posterior cerebral artery: No occlusion or significant stenosis. No aneurysm. Veins: Vascular congestion in the right cavernous sinus. Raises concern for cavernous sinus thrombosis although thrombus not evident on current examination. If there is clinical concern, consider MRI examination. Brain: No definite mass, mass effect, or midline shift. Cerebral ventricles: No ventriculomegaly. Bones/joints: Unremarkable. No acute fracture. Soft tissues: Unremarkable. IMPRESSION: 1. Vascular congestion in the right cavernous sinus. Raises concern for cavernous sinus thrombosis although thrombus not evident on current examination. If there is clinical concern, consider MRI examination. 2. No large vessel stenosis or occlusion.
[2025-03-10] MEDS: ACETAMINOPHEN 500MG TAB 500 MG PO (10:10)
[2025-03-10] MEDS: LACTATED RINGERS 1000ML 1,000 ML 999 ML IV (10:10)
[2025-03-10] MEDS: PROCHLORPERAZINE 10MG/2ML VIAL 10 MG IV (10:10)
[2025-03-10] MEDS: KETOROLAC 30MG/ML VIAL 15 MG IV (10:10)
[2025-03-10] MEDS: MAGNESIUM SULFATE IN WATER 2 GM/50 ML PIGGYBACK IV (10:10)
[2025-03-10 10:17] LABS: Hematocrit 42.7 % (37.0-47.0); Hemoglobin 14.3 g/dL (12.2-16.2); Immature Granulocytes % 0.2 %; Mean Corpuscular HGB Conc 33.5 g/dL (31.8-35.4); Mean Corpuscular Hemoglobin 31.6 pg (27.0-31.2); Mean Corpuscular Volume 94.3 fl (81-99); Nucleated Red Blood Cells % 0 %; Platelet Count 266 K/mm3 (142-424); Red Blood Count 4.53 M/mm3 (4.20-5.40); Red Cell Distribution Width-SD 43.0 fL; White Blood Count 5.2 K/mm3 (4.8-10.8)
[2025-03-10 10:21] LABS: Albumin Level 4.8 g/dl (3.5-5.0); Chloride 106 mmol/L (98-107)
[2025-03-10 10:22] LABS: Potassium 4.1 mmoL/L (3.5-5.1); Sodium 140 mmol/L (136-145)
[2025-03-10 10:24] LABS: Alanine Aminotransferase 31 U/L (12-78); Alkaline Phosphatase 94 U/L (38-126); Aspartate Amino Transferase 34 U/L (14-36); Bilirubin,Total 0.7 mg/dl (0.2-1.3); Blood Urea Nitrogen 19 mg/dl (7-17); Creatinine Clearance Estimated 107 mL/min (50-200); Creatinine,Serum 0.70 mg/dl (0.52-1.04); Estimated Glomerular Filt Rate 87 ml/min (>60); GFR (African American) 105 ML/MIN (>60)
[2025-03-10 10:25] LABS: Albumin/Globulin Ratio 1.2 (1.1-1.8); Calcium 9.7 mg/dl (8.4-10.2); Globulin 3.9 g/dL (1.3-3.2); Glucose 108 mg/dl (74-100); Magnesium 2.1 mg/dl (1.6-2.3); Total Protein,Serum 8.7 g/dl (6.3-8.2)
[2025-03-10 10:50] LABS: Troponin I < 0.01 ng/ml (0.00-0.034)
--- NOTE | 2025-03-10 11:10 | PC.NURSE ---
pt to CT by WC at this time
[2025-03-10] MEDS: SODIUM CHLORIDE 0.9% 10ML SYR (RAD ONLY) 10 ML IV (11:17)
[2025-03-10] MEDS: IOPAMIDOL-370 (76%);100ML BOTTLE 80 ML IV (11:17)
[2025-03-10] MEDS: 0.9 % SODIUM CHLORIDE 50 ML VIAL IV (11:17)
[2025-03-10 11:18] LABS: Anion Gap 9.1 mEq/L (5-15); Carbon Dioxide 29 mmol/L (22.0-30.0)
[2025-03-10 11:40] LABS: Hepatitis C Ab Qual. W/ RFX NEGATIVE (Negative)
--- NOTE | 2025-03-10 12:40 | PC.NURSE ---
I spoke to Kylah in radiology, the radiologist appears to be reading her scans now.
--- NOTE | 2025-03-10 12:57 | PC.NURSE ---
jeyson heaton on phone with WILLIE
--- NOTE | 2025-03-10 13:13 | PC.NURSE ---
speaking with WILLIE
--- NOTE | 2025-03-10 13:15 | PC.NURSE ---
call made to transfer center for cavernous thrombus
--- NOTE | 2025-03-10 13:18 | PC.NURSE ---
on the phone with .
--- NOTE | 2025-03-10 13:54 | PC.NURSE ---
Called report to Serene at ED.
--- NOTE | 2025-03-10 13:58 | PC.NURSE ---
attempted to call EMS for pt transfer, no crew at station. will attempt at later time.
--- NOTE | 2025-03-10 14:10 | PC.NURSE ---
DEIDRE spoke with andrea wood medic, at ER. Scott took information and will relay the information to other truck. they are taking a pt to [facility] and once they are done they will be able to take this pt
[2025-03-10] MEDS: OXYCODONE 5MG IMMEDIATE RELEASE TABLET 5 MG PO (14:32)
--- NOTE | 2025-03-10 15:53 | PC.NURSE ---
I spoke with suma at [facility], she states that the other crew is not back from pt transport to [facility], I will reach out again to check on this pt transport status.
== END 2025-03-10 16:21 | disposition other institution (70) ==
PROVIDERS: Emergency Provider Student in an Organized Health Care Education/Training Program; PCP Internal Medicine
DX: G44.59 Other complicated headache syndrome (principal); G08 Intracranial and intraspinal phlebitis and thrombophlebitis; R11.2 Nausea with vomiting, unspecified; R03.0 Elevated blood-pressure reading, without diagnosis of hypertension; F17.210 Nicotine dependence, cigarettes, uncomplicated
CPT/HCPCS: 70450; 70496; 70498; 80053; 83735; 84484; 85025; 86803; 87389; 93005; 96365; 96375; 99285; J0780; J1200; J1885; J3475; J7120; Q9967